=== PATIENT | female | born 1935 | race Caucasian/White ===

== ENCOUNTER 2016-08-10 20:50 | Emergency (ER) | payer MEDICARE, OTHER ==
[~2016-08-10] VITALS: Ht 175.3 cm; Wt 76.4 kg
[~2016-08-10 20:50] MED LIST: 00186-0370-20 IH; AMBIEN10 MG PO; CARDI-OMEGA1000 MG PO; CENTRUM1 TAB PO; ELITE MAGNESIUM1 TAB PO; ENTOCORT EC3 MG PO; EPA/GLA1 SGL PO; FENTANYL 25 MCG TD; GLUCOPHAGE500 MG/TAB PO; HALCION0.25 MG PO; LEVAQUIN 750MG750 M1 PO; LISINOPRIL10 MG PO; LUNESTA3 MG; MEVACOR40 MG PO; MOTRIN 600600 MG/TAB PO; NAPROSYN500 MG PO; NORCO 325 MG-51 TAB; OMNICEF 300MG300 MG PO; OSCAL 500MG/VI500 MG PO; PERCOCET 325 MG1 TA2 PO; PREDNISONE20 MG PO; PRINZIDE 12.5 M1 TA1 PO; REMERON30 MG PO; ROXICODONE 55 MG/TAB PO; RT SPIRIVA18 MCG IH; SERTRALINE50 MG PO; SYMBICORT1 AE1 IH; THEO-DUR 2200 MG/TAB PO; TRICOR200 MG PO; ULTRAM 50MG TAB50 MG PO; VITAMIN B12 PO; VITAMIN D PO; ZOCOR 20MG20 MG PO; ZOLOFT50 MG PO
[2016-08-10 20:56] VITALS: BP 146/67; PULSE 111; TEMP 97.7
[2016-08-10 21:37] LABS: BASO % 0.2 % (0.0-2.0); EOS % 0.3 % (0-4.0); GRAN # 10.5 (1.4-6.5); GRAN % 83.5 % (42.2-75.2); HEMATOCRIT 43.9 % (37.0-47.0); LYMPH # 1.4 (1.2-3.4); LYMPH % 11.1 % (20.0-51.0); MEAN CELL VOLUME 93 fl (80.0-100.0); MEAN CORPUSCULAR HEMOGLOBIN 30 pg (27.0-31.0); MEAN CORPUSCULAR HGB CONC 32 g/dl (33.0-37.0); MEAN PLATELET VOLUME 8.5 fl (7.4-10.4); MONO # 0.5 (0.1-0.6); MONO % 4.1 % (1.7-9.3); PLATELET COUNT 191 K/mm3 (130-400); RED BLOOD COUNT 4.73 M/mm3 (4.10-5.30); REDCELL DISTRIBUTION WIDTH-CV 13.6 % (11.5-14.5); WHITE BLOOD COUNT 12.6 K/mm3 (4.8-10.8)
[2016-08-10] MEDS ORDERED: AMITRIPTYLINE H25 M1 PO (21:44)
[2016-08-10] MEDS ORDERED: MILLIPRED DP5 MG PO (21:48)
[2016-08-10 21:56] LABS: ADJUSTED CALCIUM 8.9 mg/dL (8.4-10.2); ALANINE AMINOTRANSFERASE 24 U/L (9-52); ALBUMIN 3.6 gm/dL (3.5-5.0); ALKALINE PHOSPHATASE 71 U/L (50-136); ANION GAP 10 mmol/L (7-16); BILIRUBIN,TOTAL 0.8 mg/dL (0.0-1.0); BLOOD UREA NITROGEN 34 mg/dL (7-17); C-REACTIVE PROTEIN 1.9 mg/dL (0.0-0.9); CALCIUM 8.6 mg/dL (8.4-10.2); CARBON DIOXIDE 40 mmol/L (22-30); CREATININE, serum 1.11 mg/dL (0.52-1.25); GLUCOSE 206 mg/dL (74-106); LIPASE 151 U/L (23-300); POTASSIUM 4.8 mmol/L (3.4-5.0); SODIUM 138 mmol/L (137-145); TOTAL PROTEIN 6.8 gm/dL (6.4-8.2)
[2016-08-10 22:01] LABS: CHLORIDE 88 mmol/L (98-107)
[2016-08-10 22:08] LABS: ERYTHROCYTE SEDIMENTATION RATE 28 mm/hr (0-30); TROPONIN-I < 0.012 ng/mL (0.000-0.034)
[2016-08-10] MEDS ORDERED: ULTRAM 50MG TAB50 MG PO (22:36)
[2016-08-10] MEDS ORDERED: ROXICODONE 55 MG/TAB PO (22:36)
[2016-09-01] MEDS ORDERED: IPRATROPIUM BROM3 M1 IH (08:54)
== END 2016-08-10 23:25 | disposition home or self-care (01) ==
LOC: COL.ER 20:50
PROVIDERS: Emergency Medicine
DX: Z02.89 Encounter for other administrative examinations (principal)
CPT/HCPCS: J1170; J2175; Q9967

== ENCOUNTER 2016-08-12 01:06 | Inpatient (IN) | payer MEDICARE, MEDICAID ==
[~2016-08-12] VITALS: Ht 167.6 cm; Wt 83.1 kg
[~2016-08-12 01:06] MED LIST changes: +AMITRIPTYLINE H25 M1 PO; +MILLIPRED DP5 MG PO
[2016-08-12 01:24] LABS: BASO # 0.1 (0.0-0.2); BASO % 0.5 % (0.0-2.0); EOS # 0.3 (0.0-0.7); EOS % 2.4 % (0-4.0); GRAN # 8.7 (1.4-6.5); GRAN % 65.5 % (42.2-75.2); HEMATOCRIT 44.2 % (37.0-47.0); LYMPH # 3.3 (1.2-3.4); MEAN CELL VOLUME 95 fl (80.0-100.0); MEAN CORPUSCULAR HEMOGLOBIN 30 pg (27.0-31.0); MEAN CORPUSCULAR HGB CONC 32 g/dl (33.0-37.0); MEAN PLATELET VOLUME 8.5 fl (7.4-10.4); MONO # 0.8 (0.1-0.6); MONO % 5.9 % (1.7-9.3); PLATELET COUNT 168 K/mm3 (130-400); RED BLOOD COUNT 4.67 M/mm3 (4.10-5.30); WHITE BLOOD COUNT 13.3 K/mm3 (4.8-10.8)
[2016-08-12 01:39] LABS: ADJUSTED CALCIUM 8.9 mg/dL (8.4-10.2); ALBUMIN 3.9 gm/dL (3.5-5.0); BILIRUBIN,TOTAL 0.9 mg/dL (0.0-1.0); CALCIUM 8.8 mg/dL (8.4-10.2); CREATININE, serum 1.64 mg/dL (0.52-1.25); POTASSIUM 4.6 mmol/L (3.4-5.0); TOTAL PROTEIN 7.2 gm/dL (6.4-8.2)
[2016-08-12] MEDS ORDERED: REMERON30 MG PO (02:20)
[2016-08-12 02:54] LABS: TROPONIN-I 0.038 ng/mL (0.000-0.034)
[2016-08-12 03:38] VITALS: BP 104/50; PULSE 78; TEMP 98.2
[2016-08-12 07:41] LABS: HEMATOCRIT 40.5 % (37.0-47.0); HEMOGLOBIN 12.5 g/dl (12.5-16.0); MEAN CELL VOLUME 98 fl (80.0-100.0); MEAN CORPUSCULAR HEMOGLOBIN 30 pg (27.0-31.0); MEAN CORPUSCULAR HGB CONC 31 g/dl (33.0-37.0); MEAN PLATELET VOLUME 8.6 fl (7.4-10.4); PLATELET COUNT 161 K/mm3 (130-400); RED BLOOD COUNT 4.13 M/mm3 (4.10-5.30); REDCELL DISTRIBUTION WIDTH-CV 13.9 % (11.5-14.5)
[2016-08-12 08:00] LABS: ADD PATHOLOGY DIFF REVIEW NO; CALCIUM 7.8 mg/dL (8.4-10.2); CREATININE, serum 1.31 mg/dL (0.52-1.25); POTASSIUM 4.5 mmol/L (3.4-5.0)
[2016-08-12 08:10] VITALS: BP 123/55; PULSE 111; TEMP 98.7
[2016-08-12 08:49] LABS: BAND 14 % (0-10); NEUTROPHILS 80 % (42.0-75.2); TOTAL CELLS COUNTED 100
[2016-08-12 08:50] LABS: PLATELET ESTIMATE NORMAL (NORMAL)
[2016-08-12 10:39] LABS: PH 6 (5-8); SQUAMOUS EPITHELIAL 0-2 /hpf; URINE APPEARANCE Clear; URINE BACTERIA None Seen /hpf; URINE BILIRUBIN Negative (NEGATIVE); URINE BLOOD Negative (NEGATIVE); URINE COLOR Yellow; URINE GLUCOSE Negative (NEGATIVE); URINE KETONE Negative (NEGATIVE); URINE RBC 0-2 /hpf; URINE UROBILINOGEN Negative (NEGATIVE); URINE WBC 0-2 /hpf
[2016-08-12 11:45] VITALS: BP 94/53; PULSE 113; TEMP 98.3
[2016-09-01] MEDS ORDERED: IPRATROPIUM BROM3 M1 IH (08:54)
== END 2016-08-12 16:04 | disposition left against medical advice (07) | DRG 560 ==
LOC: COL.ER 01:06 → MEDICAL 02:27
PROVIDERS: Family Medicine; Nurse Practitioner Family
DX: M80.88XD Other osteoporosis with current pathological fracture, vertebra(e), subsequent encounter for fracture with routine healing (principal); J44.1 Chronic obstructive pulmonary disease with (acute) exacerbation; N17.9 Acute kidney failure, unspecified; E87.1 Hypo-osmolality and hyponatremia; E86.0 Dehydration; I10 Essential (primary) hypertension; F17.210 Nicotine dependence, cigarettes, uncomplicated; E87.8 Other disorders of electrolyte and fluid balance, not elsewhere classified
CPT/HCPCS: 99222-AI; 99231-AI; 99232-AI; J1170; J1644; J1956; J2175; J2920; J2930; J7030; Q9967

== ENCOUNTER 2016-08-14 16:56 | Inpatient (IN) | payer OTHER, MEDICAID ==
[2016-08-14] VITALS (191 sets, daily range): BP systolic 134; BP diastolic 85; PULSE 97; TEMP 97.4; O2SAT 86–100
[~2016-08-14] VITALS: Ht 175.3 cm; Wt 80.1 kg
[2016-08-14 17:31] LABS: BASO % 0.2 % (0.0-2.0); EOS # 0.3 (0.0-0.7); EOS % 2.2 % (0-4.0); GRAN # 8.5 (1.4-6.5); GRAN % 70.1 % (42.2-75.2); HEMATOCRIT 39.4 % (37.0-47.0); LYMPH # 2.4 (1.2-3.4); MEAN CELL VOLUME 98 fl (80.0-100.0); MEAN CORPUSCULAR HEMOGLOBIN 30 pg (27.0-31.0); MEAN CORPUSCULAR HGB CONC 31 g/dl (33.0-37.0); MEAN PLATELET VOLUME 8.6 fl (7.4-10.4); MONO # 0.8 (0.1-0.6); MONO % 6.8 % (1.7-9.3); PLATELET COUNT 184 K/mm3 (130-400); RED BLOOD COUNT 4.02 M/mm3 (4.10-5.30); WHITE BLOOD COUNT 12.2 K/mm3 (4.8-10.8)
[2016-08-14 17:40] LABS: ADJUSTED CALCIUM 9.1 mg/dL (8.4-10.2); ALANINE AMINOTRANSFERASE 33 U/L (9-52); ALBUMIN 3.3 gm/dL (3.5-5.0); ALKALINE PHOSPHATASE 64 U/L (50-136); ANION GAP 6 mmol/L (7-16); BILIRUBIN,TOTAL 0.5 mg/dL (0.0-1.0); BLOOD UREA NITROGEN 30 mg/dL (7-17); CALCIUM 8.5 mg/dL (8.4-10.2); CARBON DIOXIDE 35 mmol/L (22-30); CHLORIDE 92 mmol/L (98-107); CREATININE, serum 1.21 mg/dL (0.52-1.25); GLUCOSE 111 mg/dL (74-106); LIPASE 67 U/L (23-300); POTASSIUM 4.7 mmol/L (3.4-5.0); SODIUM 133 mmol/L (137-145); TOTAL PROTEIN 6.3 gm/dL (6.4-8.2)
[2016-08-14 17:42] LABS: ACETAMINOPHEN < 10 ug/mL (10-30)
[2016-08-14 17:52] LABS: B-TYPE NATRIURETIC PEPTIDE 8650 pg/mL (0-450)
[2016-08-14 17:54] LABS: TROPONIN-I 0.071 ng/mL (0.000-0.034)
[2016-08-14 18:00] LABS: ARTERIAL BLD GAS O2 SATURATION 93.7 % (92-100); ARTERIAL BLD GAS TCO2 CT 37.7; ARTERIAL BLOOD GAS BASE EXCESS 5.8 (-2-2); ARTERIAL BLOOD GAS HCO3 35.3 meq/L (22-26); ARTERIAL BLOOD GAS PHT 7.27 C (7.35-7.45); ARTERIAL BLOOD GAS PO2 71.5 mmHg (80-100); ARTERIAL BLOOD GAS PO2T 71.5 (80-100); ARTERIAL BLOOD GAS pH 7.27 (7.35-7.45); OXYHEMOGLOBIN 83.2 %
[2016-08-14 18:02] LABS: ATS? YES
[2016-08-14 18:08] LABS: INR 0.9 (0.8-3.0); PROTHROMBIN TIME 10.4 SECONDS (9.7-12.8)
[2016-08-14 18:11] LABS: PARTIAL THROMBOPLASTIN TIME 28.7 SECONDS (26.0-37.0)
[2016-08-14 21:45] LABS: ARTERIAL BLD GAS O2 SATURATION 97.4 % (92-100); ARTERIAL BLD GAS TCO2 CT 42.6; ARTERIAL BLOOD GAS BASE EXCESS 7.8 (-2-2); ARTERIAL BLOOD GAS HCO3 39.5 meq/L (22-26); ARTERIAL BLOOD GAS PHT 7.21 C (7.35-7.45); ARTERIAL BLOOD GAS PO2 108.4 mmHg (80-100); ARTERIAL BLOOD GAS PO2T 108.4 (80-100); ARTERIAL BLOOD GAS pH 7.21 (7.35-7.45); OXYHEMOGLOBIN 88.8 %
[2016-08-14 21:48] LABS: ALLEN TEST YES; ALLENS TEST RESULT PASS; ATS? YES
[2016-08-15] VITALS (852 sets, daily range): BP systolic 54–140; BP diastolic 32–83; PULSE 97–118; TEMP 97.4–98.4; O2SAT 67–100
[2016-08-15 05:40] LABS: ARTERIAL BLD GAS O2 SATURATION 94.4 % (92-100); ARTERIAL BLD GAS TCO2 CT 39.8; ARTERIAL BLOOD GAS BASE EXCESS 5.1 (-2-2); ARTERIAL BLOOD GAS HCO3 36.8 meq/L (22-26); ARTERIAL BLOOD GAS PO2 79.6 mmHg (80-100); ARTERIAL BLOOD GAS PO2T 79.6 (80-100); OXYHEMOGLOBIN 88.7 %
[2016-08-15 05:43] LABS: ALLEN TEST YES; ALLENS TEST RESULT PASS; ATS? YES
[2016-08-15 06:18] LABS: CALCIUM 8.8 mg/dL (8.4-10.2); CREATININE, serum 1.22 mg/dL (0.52-1.25); POTASSIUM 5.3 mmol/L (3.4-5.0)
[2016-08-15 06:46] LABS: HEMATOCRIT 43.7 % (37.0-47.0); HEMOGLOBIN 13.1 g/dl (12.5-16.0); MEAN CELL VOLUME 99 fl (80.0-100.0); MEAN CORPUSCULAR HEMOGLOBIN 30 pg (27.0-31.0); MEAN CORPUSCULAR HGB CONC 30 g/dl (33.0-37.0); MEAN PLATELET VOLUME 8.7 fl (7.4-10.4); PLATELET COUNT 193 K/mm3 (130-400); RED BLOOD COUNT 4.42 M/mm3 (4.10-5.30); REDCELL DISTRIBUTION WIDTH-CV 14.2 % (11.5-14.5); WHITE BLOOD COUNT 8.8 K/mm3 (4.8-10.8)
[2016-08-15 06:47] LABS: ADD PATHOLOGY DIFF REVIEW NO
[2016-08-15 07:01] LABS: THYROID STIMULATING HORMONE 0.846 uIU/mL (0.465-4.680)
[2016-08-15 07:31] LABS: TROPONIN-I 0.056 ng/mL (0.000-0.034)
[2016-08-15 07:44] LABS: NEUTROPHILS 95 % (42.0-75.2); TOTAL CELLS COUNTED 100
[2016-08-15 07:45] LABS: POLYCHROMASIA 1+
[2016-08-15 07:46] LABS: ANISOCYTOSIS 1+; STOMATOCYTE 1+
[2016-08-15 08:19] LABS: ARTERIAL BLD GAS O2 SATURATION 93.6 % (92-100); ARTERIAL BLD GAS TCO2 CT 43.2; ARTERIAL BLOOD GAS BASE EXCESS 8.2 (-2-2); ARTERIAL BLOOD GAS HCO3 40.1 meq/L (22-26); ARTERIAL BLOOD GAS PHT 7.21 C (7.35-7.45); ARTERIAL BLOOD GAS PO2 70.3 mmHg (80-100); ARTERIAL BLOOD GAS PO2T 70.3 (80-100); ARTERIAL BLOOD GAS pH 7.21 (7.35-7.45); OXYHEMOGLOBIN 88.7 %
[2016-08-15 08:21] LABS: ALLEN TEST YES; ALLENS TEST RESULT PASS; ATS? YES
[2016-08-15 14:16] LABS: ARTERIAL BLD GAS O2 SATURATION 97.5 % (92-100); ARTERIAL BLD GAS TCO2 CT 34.2; ARTERIAL BLOOD GAS HCO3 32.3 meq/L (22-26); ARTERIAL BLOOD GAS PHT 7.35 C (7.35-7.45); ARTERIAL BLOOD GAS PO2 106.1 mmHg (80-100); ARTERIAL BLOOD GAS PO2T 106.1 (80-100); ARTERIAL BLOOD GAS pH 7.35 (7.35-7.45)
[2016-08-15 14:17] LABS: ATS? YES
[2016-08-15 14:18] LABS: ALLEN TEST YES; ALLENS TEST RESULT PASS
[2016-08-16] VITALS (848 sets, daily range): BP systolic 92–153; BP diastolic 52–84; PULSE 103–115; TEMP 97.2–99; O2SAT 71–100
[2016-08-16 04:57] LABS: ARTERIAL BLD GAS O2 SATURATION 93.1 % (92-100); ARTERIAL BLD GAS TCO2 CT 35.2; ARTERIAL BLOOD GAS HCO3 33.7 meq/L (22-26); ARTERIAL BLOOD GAS PHT 7.43 C (7.35-7.45); ARTERIAL BLOOD GAS PO2 69.9 mmHg (80-100); ARTERIAL BLOOD GAS PO2T 69.9 (80-100); ARTERIAL BLOOD GAS pH 7.43 (7.35-7.45); OXYHEMOGLOBIN 92.1 %
[2016-08-16 04:59] LABS: ALLEN TEST YES; ALLENS TEST RESULT PASS; ATS? YES
[2016-08-16 06:05] LABS: MEAN CELL VOLUME 95 fl (80.0-100.0); MEAN CORPUSCULAR HGB CONC 32 g/dl (33.0-37.0); MEAN PLATELET VOLUME 9.2 fl (7.4-10.4); PLATELET COUNT 219 K/mm3 (130-400); RED BLOOD COUNT 3.79 M/mm3 (4.10-5.30); REDCELL DISTRIBUTION WIDTH-CV 13.9 % (11.5-14.5); WHITE BLOOD COUNT 9.6 K/mm3 (4.8-10.8)
[2016-08-16 06:09] LABS: HEMATOCRIT 35.9 % (37.0-47.0); HEMOGLOBIN 11.3 g/dl (12.5-16.0); MEAN CORPUSCULAR HEMOGLOBIN 30 pg (27.0-31.0)
[2016-08-16 06:11] LABS: ADD PATHOLOGY DIFF REVIEW NO
[2016-08-16 06:18] LABS: ADJUSTED CALCIUM 9.2 mg/dL (8.4-10.2); ALBUMIN 3.1 gm/dL (3.5-5.0); BILIRUBIN,TOTAL 0.6 mg/dL (0.0-1.0); CALCIUM 8.5 mg/dL (8.4-10.2); CREATININE, serum 1.04 mg/dL (0.52-1.25); MAGNESIUM 1.6 mg/dL (1.6-2.3); PHOSPHOROUS 3.9 mg/dL (2.5-4.5); TOTAL PROTEIN 6.1 gm/dL (6.4-8.2)
[2016-08-16 06:36] LABS: BAND 11 % (0-10); NEUTROPHILS 79 % (42.0-75.2); TOTAL CELLS COUNTED 100
[2016-08-17] VITALS (1373 sets, daily range): BP systolic 106–147; BP diastolic 54–79; PULSE 89–108; TEMP 97.8–98.6; O2SAT 88–100
[2016-08-17 04:23] LABS: ARTERIAL BLD GAS O2 SATURATION 89.1 % (92-100); ARTERIAL BLOOD GAS BASE EXCESS 7.7 (-2-2); ARTERIAL BLOOD GAS HCO3 33.4 meq/L (22-26); ARTERIAL BLOOD GAS PHT 7.43 C (7.35-7.45); ARTERIAL BLOOD GAS PO2 55.7 mmHg (80-100); ARTERIAL BLOOD GAS PO2T 55.7 (80-100); ARTERIAL BLOOD GAS pH 7.43 (7.35-7.45); OXYHEMOGLOBIN 88.4 %
[2016-08-17 04:24] LABS: ALLEN TEST YES; ALLENS TEST RESULT PASS; ATS? YES
[2016-08-17 05:23] LABS: BASO % 0.1 % (0.0-2.0); GRAN # 8.9 (1.4-6.5); LYMPH # 0.4 (1.2-3.4); LYMPH % 4.2 % (20.0-51.0); MEAN CELL VOLUME 95 fl (80.0-100.0); MEAN CORPUSCULAR HGB CONC 32 g/dl (33.0-37.0); MEAN PLATELET VOLUME 8.5 fl (7.4-10.4); MONO # 0.5 (0.1-0.6); MONO % 4.9 % (1.7-9.3); PLATELET COUNT 216 K/mm3 (130-400); RED BLOOD COUNT 3.52 M/mm3 (4.10-5.30); REDCELL DISTRIBUTION WIDTH-CV 14.2 % (11.5-14.5); WHITE BLOOD COUNT 9.9 K/mm3 (4.8-10.8)
[2016-08-17 05:24] LABS: HEMATOCRIT 33.3 % (37.0-47.0); HEMOGLOBIN 10.5 g/dl (12.5-16.0); MEAN CORPUSCULAR HEMOGLOBIN 30 pg (27.0-31.0)
[2016-08-17 05:43] LABS: ADJUSTED CALCIUM 9.1 mg/dL (8.4-10.2); ALBUMIN 2.7 gm/dL (3.5-5.0); BILIRUBIN,TOTAL 0.5 mg/dL (0.0-1.0); CALCIUM 8.1 mg/dL (8.4-10.2); CREATININE, serum 0.84 mg/dL (0.52-1.25); MAGNESIUM 1.7 mg/dL (1.6-2.3); PHOSPHOROUS 3.2 mg/dL (2.5-4.5); POTASSIUM 3.9 mmol/L (3.4-5.0); TOTAL PROTEIN 5.3 gm/dL (6.4-8.2)
[2016-08-17 11:26] LABS: pH GASTRIC CONTENTS 3
[2016-08-18] VITALS (791 sets, daily range): BP systolic 116–138; BP diastolic 64–84; PULSE 88–108; TEMP 97–98.1; O2SAT 62–100
[2016-08-18 04:40] LABS: ARTERIAL BLD GAS O2 SATURATION 89.3 % (92-100); ARTERIAL BLD GAS TCO2 CT 30.5; ARTERIAL BLOOD GAS BASE EXCESS 4.7 (-2-2); ARTERIAL BLOOD GAS HCO3 29.2 meq/L (22-26); ARTERIAL BLOOD GAS PHT 7.45 C (7.35-7.45); ARTERIAL BLOOD GAS PO2 54.5 mmHg (80-100); ARTERIAL BLOOD GAS PO2T 54.5 (80-100); ARTERIAL BLOOD GAS pH 7.45 (7.35-7.45); OXYHEMOGLOBIN 88.7 %
[2016-08-18 04:42] LABS: ALLEN TEST YES; ALLENS TEST RESULT PASS; ATS? YES
[2016-08-18 05:40] LABS: ADJUSTED CALCIUM 8.9 mg/dL (8.4-10.2); ALBUMIN 2.7 gm/dL (3.5-5.0); BILIRUBIN,TOTAL 0.4 mg/dL (0.0-1.0); CALCIUM 7.9 mg/dL (8.4-10.2); CREATININE, serum 0.92 mg/dL (0.52-1.25); POTASSIUM 4.1 mmol/L (3.4-5.0); TOTAL PROTEIN 5.2 gm/dL (6.4-8.2)
[2016-08-18 05:44] LABS: BASO % 0.1 % (0.0-2.0); GRAN # 7.5 (1.4-6.5); GRAN % 88.3 % (42.2-75.2); LYMPH # 0.4 (1.2-3.4); LYMPH % 4.5 % (20.0-51.0); MEAN CELL VOLUME 96 fl (80.0-100.0); MEAN CORPUSCULAR HGB CONC 32 g/dl (33.0-37.0); MEAN PLATELET VOLUME 8.8 fl (7.4-10.4); MONO # 0.5 (0.1-0.6); PLATELET COUNT 215 K/mm3 (130-400); RED BLOOD COUNT 3.38 M/mm3 (4.10-5.30); REDCELL DISTRIBUTION WIDTH-CV 14.6 % (11.5-14.5); WHITE BLOOD COUNT 8.5 K/mm3 (4.8-10.8)
[2016-08-18 06:10] LABS: HEMATOCRIT 32.3 % (37.0-47.0); HEMOGLOBIN 10.2 g/dl (12.5-16.0); MEAN CORPUSCULAR HEMOGLOBIN 30 pg (27.0-31.0)
[2016-08-18 06:18] LABS: MAGNESIUM 1.8 mg/dL (1.6-2.3); PHOSPHOROUS 3.5 mg/dL (2.5-4.5)
[2016-08-19] VITALS (1118 sets, daily range): BP systolic 99–144; BP diastolic 47–86; PULSE 68–133; TEMP 97.2–98.5; O2SAT 37–100
[2016-08-19 04:49] LABS: ARTERIAL BLD GAS O2 SATURATION 95.4 % (92-100); ARTERIAL BLD GAS TCO2 CT 29.1; ARTERIAL BLOOD GAS BASE EXCESS 2.2 (-2-2); ARTERIAL BLOOD GAS HCO3 27.7 meq/L (22-26); ARTERIAL BLOOD GAS PHT 7.39 C (7.35-7.45); ARTERIAL BLOOD GAS PO2 85.6 mmHg (80-100); ARTERIAL BLOOD GAS PO2T 85.6 (80-100); ARTERIAL BLOOD GAS pH 7.39 (7.35-7.45); OXYHEMOGLOBIN 94.8 %
[2016-08-19 04:50] LABS: ATS? YES
[2016-08-19 04:51] LABS: ALLEN TEST YES; ALLENS TEST RESULT PASS
[2016-08-19 05:28] LABS: MEAN CELL VOLUME 96 fl (80.0-100.0); MEAN CORPUSCULAR HGB CONC 31 g/dl (33.0-37.0); MEAN PLATELET VOLUME 8.8 fl (7.4-10.4); PLATELET COUNT 210 K/mm3 (130-400); RED BLOOD COUNT 3.24 M/mm3 (4.10-5.30); REDCELL DISTRIBUTION WIDTH-CV 14.7 % (11.5-14.5); WHITE BLOOD COUNT 9.7 K/mm3 (4.8-10.8)
[2016-08-19 05:30] LABS: ADD PATHOLOGY DIFF REVIEW NO; HEMATOCRIT 31.2 % (37.0-47.0); HEMOGLOBIN 9.8 g/dl (12.5-16.0); MEAN CORPUSCULAR HEMOGLOBIN 30 pg (27.0-31.0)
[2016-08-19 05:36] LABS: ADJUSTED CALCIUM 8.8 mg/dL (8.4-10.2); ALBUMIN 2.5 gm/dL (3.5-5.0); BILIRUBIN,TOTAL 0.4 mg/dL (0.0-1.0); CALCIUM 7.6 mg/dL (8.4-10.2); CREATININE, serum 0.85 mg/dL (0.52-1.25); MAGNESIUM 1.7 mg/dL (1.6-2.3); POTASSIUM 4.2 mmol/L (3.4-5.0); TOTAL PROTEIN 5.1 gm/dL (6.4-8.2)
[2016-08-19 06:11] LABS: BAND 46 % (0-10); NEUTROPHILS 48 % (42.0-75.2); TOTAL CELLS COUNTED 100
[2016-08-19 16:02] LABS: ARTERIAL BLD GAS O2 SATURATION 95.5 % (92-100); ARTERIAL BLD GAS TCO2 CT 31.8; ARTERIAL BLOOD GAS BASE EXCESS 5.1 (-2-2); ARTERIAL BLOOD GAS HCO3 30.3 meq/L (22-26); ARTERIAL BLOOD GAS PHT 7.42 C (7.35-7.45); ARTERIAL BLOOD GAS pH 7.42 (7.35-7.45); OXYHEMOGLOBIN 94.9 %
[2016-08-19 16:03] LABS: ALLEN TEST YES; ALLENS TEST RESULT PASS; ATS? YES
[2016-08-20] VITALS (754 sets, daily range): BP systolic 112–128; BP diastolic 54–72; PULSE 91–108; TEMP 97.7–98.9; O2SAT 48–100
[2016-08-20 05:43] LABS: MEAN CELL VOLUME 96 fl (80.0-100.0); MEAN CORPUSCULAR HGB CONC 31 g/dl (33.0-37.0); MEAN PLATELET VOLUME 8.7 fl (7.4-10.4); PLATELET COUNT 188 K/mm3 (130-400); RED BLOOD COUNT 3.12 M/mm3 (4.10-5.30); REDCELL DISTRIBUTION WIDTH-CV 14.6 % (11.5-14.5); WHITE BLOOD COUNT 9.5 K/mm3 (4.8-10.8)
[2016-08-20 05:46] LABS: ADD PATHOLOGY DIFF REVIEW NO; HEMATOCRIT 29.9 % (37.0-47.0); HEMOGLOBIN 9.3 g/dl (12.5-16.0); MEAN CORPUSCULAR HEMOGLOBIN 30 pg (27.0-31.0)
[2016-08-20 05:52] LABS: CALCIUM 7.9 mg/dL (8.4-10.2); CREATININE, serum 0.82 mg/dL (0.52-1.25)
[2016-08-20 06:19] LABS: BAND 35 % (0-10); NEUTROPHILS 59 % (42.0-75.2); TOTAL CELLS COUNTED 100
[2016-08-20 15:26] LABS: THEOPHYLLINE 14.9 ug/mL (10.0-20.0)
[2016-08-21 00:25] VITALS: BP 119/56; PULSE 93; TEMP 98.6
[2016-08-21 03:23] VITALS: BP 123/73; PULSE 94; TEMP 98.5
[2016-08-21 05:29] LABS: ARTERIAL BLD GAS TCO2 CT 35.8; ARTERIAL BLOOD GAS BASE EXCESS 7.5 (-2-2); ARTERIAL BLOOD GAS PO2 77.5 mmHg (80-100); ARTERIAL BLOOD GAS pH 7.39 (7.35-7.45)
[2016-08-21 05:30] LABS: ALLEN TEST YES; ALLENS TEST RESULT PASS; ATS? YES
[2016-08-21 09:34] VITALS: BP 102/47; PULSE 106; TEMP 97.8
[2016-08-21 13:10] VITALS: BP 98/60; PULSE 79; TEMP 97.8
[2016-08-21 17:31] VITALS: BP 105/39; PULSE 74; TEMP 97.7
[2016-08-21 22:45] VITALS: BP 124/66; PULSE 94; TEMP 98.6
[2016-08-22 03:31] VITALS: BP 134/57; PULSE 95; TEMP 98.3
[2016-08-22 06:12] LABS: BASO % 0.3 % (0.0-2.0); GRAN # 13.1 (1.4-6.5); GRAN % 88.3 % (42.2-75.2); LYMPH # 0.5 (1.2-3.4); LYMPH % 3.6 % (20.0-51.0); MEAN CELL VOLUME 97 fl (80.0-100.0); MEAN CORPUSCULAR HGB CONC 31 g/dl (33.0-37.0); MEAN PLATELET VOLUME 8.9 fl (7.4-10.4); MONO # 0.8 (0.1-0.6); MONO % 5.1 % (1.7-9.3); REDCELL DISTRIBUTION WIDTH-CV 14.5 % (11.5-14.5); WHITE BLOOD COUNT 14.8 K/mm3 (4.8-10.8)
[2016-08-22 06:43] LABS: ADJUSTED CALCIUM 9.2 mg/dL (8.4-10.2); BILIRUBIN,TOTAL 0.5 mg/dL (0.0-1.0); CALCIUM 8.4 mg/dL (8.4-10.2); CREATININE, serum 0.91 mg/dL (0.52-1.25); POTASSIUM 4.2 mmol/L (3.4-5.0); TOTAL PROTEIN 5.6 gm/dL (6.4-8.2)
[2016-08-22 06:52] LABS: HEMATOCRIT 33.8 % (37.0-47.0); HEMOGLOBIN 10.4 g/dl (12.5-16.0); MEAN CORPUSCULAR HEMOGLOBIN 30 pg (27.0-31.0); PLATELET COUNT 294 K/mm3 (130-400)
[2016-08-22 09:23] VITALS: BP 114/64; PULSE 104; TEMP 98
[2016-08-22 12:34] LABS: ADD PATHOLOGY DIFF REVIEW NO
[2016-08-22 12:37] LABS: BAND 23 % (0-10); EOSINOPHIL 1 % (0-4); METAMYELOCYTE 1 % (0-0); MYELOCYTE 1 % (0-0); NEUTROPHILS 68 % (42.0-75.2); PLATELET ESTIMATE NORMAL (NORMAL); TOTAL CELLS COUNTED 100
[2016-08-22 12:38] LABS: ANISOCYTOSIS 1+
[2016-08-22 13:32] VITALS: BP 114/64; PULSE 96; TEMP 98.1
[2016-08-22 17:23] VITALS: BP 104/63; PULSE 101; TEMP 97.8
[2016-08-22 20:07] VITALS: BP 130/66; PULSE 106; TEMP 98.5
[2016-08-22 22:43] VITALS: BP 130/57; PULSE 98; TEMP 98.4
[2016-08-23 03:15] VITALS: BP 130/64; PULSE 91; TEMP 98.3
[2016-08-23 07:55] VITALS: BP 148/77; PULSE 92; TEMP 97.6
[2016-08-23 11:58] VITALS: BP 135/74; PULSE 92; TEMP 97.9
[2016-08-23 16:27] VITALS: BP 100/47; PULSE 99; TEMP 98.5
[2016-08-23 20:03] VITALS: BP 126/65; PULSE 109; TEMP 98.4
[2016-08-24 01:34] VITALS: BP 99/50; PULSE 93; TEMP 97.8
[2016-08-24 05:29] VITALS: BP 120/51; PULSE 70; TEMP 97.2
[2016-08-24 07:51] VITALS: BP 133/68; PULSE 104; TEMP 97.7
[2016-08-24 12:18] VITALS: BP 114/62; PULSE 100; TEMP 98.2
[2016-08-24] MEDS ORDERED: IPRATROPIUM BROM3 M1 IH (13:39)
[2016-08-24] MEDS ORDERED: NICODERM C21 MG/PATC TD (13:41)
[2016-08-24] MEDS ORDERED: ASPIRIN E.C. 8181 MG PO (13:41)
[2016-08-24] MEDS ORDERED: PROTONIX 40MG T40 MG PO (13:43)
[2016-08-24] MEDS ORDERED: LASIX 40MG TABL40 MG PO (13:44)
[2016-08-24] MEDS ORDERED: INCRUSE EL62.5 MCG/A IH (13:45)
[2016-08-24] MEDS ORDERED: CARDIZEM CD 12120 MG PO (13:46)
[2016-08-24] MEDS ORDERED: PRINIVIL10 MG PO (13:47)
[2016-08-24] MEDS ORDERED: PREDNISONE10 MG PO (13:51)
[2016-08-24 14:51] VITALS: BP 114/62; PULSE 100; TEMP 98.2
[2016-09-01] MEDS ORDERED: IPRATROPIUM BROM3 M1 IH (08:54)
== END 2016-08-24 15:55 | DRG 163 ==
LOC: COL.ER 16:56 → ICU 18:56 → IMCU 18:56 → ICU 08-15 10:40 → MEDICAL 08-20 16:00
PROVIDERS: Emergency Medicine; Family Medicine; Internal Medicine; Internal Medicine Pulmonary Disease
PROC: 0BH18EZ Insertion of Endotracheal Airway into Trachea, Via Natural or Artificial Opening Endoscopic (ICD-10-PCS; principal; 2016-08-15)
PROC: 5A1945Z Respiratory Ventilation, 24-96 Consecutive Hours (ICD-10-PCS; 2016-08-15)
PROC: 0B968ZZ Drainage of Right Lower Lobe Bronchus, Via Natural or Artificial Opening Endoscopic (ICD-10-PCS; 2016-08-16)
PROC: 0B9B8ZZ Drainage of Left Lower Lobe Bronchus, Via Natural or Artificial Opening Endoscopic (ICD-10-PCS; 2016-08-16)
DX: J96.22 Acute and chronic respiratory failure with hypercapnia (principal); I21.4 Non-ST elevation (NSTEMI) myocardial infarction; J44.1 Chronic obstructive pulmonary disease with (acute) exacerbation; E46 Unspecified protein-calorie malnutrition; K92.0 Hematemesis; J98.11 Atelectasis; I10 Essential (primary) hypertension; F17.210 Nicotine dependence, cigarettes, uncomplicated; M48.54XD Collapsed vertebra, not elsewhere classified, thoracic region, subsequent encounter for fracture with routine healing; E87.5 Hyperkalemia; D64.9 Anemia, unspecified; K52.831 Collagenous colitis
CPT/HCPCS: 99223-AI; 99232-AI; 99233-AI; 99239; A4315; C1751; C9113; J0280; J0330; J0456; J1160; J1650; J1940; J2060; J2250; J2704; J2920; J2930; J3010; J3475; J3480; J7030; J7040; J7050; J7060; J7512; Q9967

== ENCOUNTER → 2016-09-01 | Outpatient (CLI) | payer MEDICARE, MEDICAID ==
[~2016-09-01] VITALS: Ht 175.3 cm; Wt 77.3 kg
[~2016-09-01] MED LIST changes: +AMBIEN 5MG TABLE5 MG PO; +ASPIRIN E.C. 8181 MG PO; +CARDIZEM CD 12120 MG PO; +INCRUSE EL62.5 MCG/A IH; +IPRATROPIUM BROM3 M1 IH; +LASIX 40MG TABL40 MG PO; +LEVAQUIN 5500 MG/TA1 PO; +NICODERM C21 MG/PATC TD; +PREDNISONE10 MG PO; +PRINIVIL10 MG PO; +PROTONIX 40MG T40 MG PO; +ZOFRAN 4MG T4 MG/TAB PO
[2016-09-01 08:39] VITALS: BP 105/55; PULSE 94
[2016-09-01 10:10] VITALS: BP 106/56; PULSE 97
[2016-09-01 10:11] VITALS: BP 105/57; PULSE 96
[2016-09-01 10:12] VITALS: BP 114/56; PULSE 95
== END ==
LOC: COL.CARD 08:25
DX: R94.39 Abnormal result of other cardiovascular function study (principal); R07.89 Other chest pain
CPT/HCPCS: A9502; J2785

== ENCOUNTER 2016-09-10 12:10 | Emergency (ER) | payer MEDICARE, MEDICAID ==
[~2016-09-10] VITALS: Ht 175.3 cm; Wt 75.9 kg
[~2016-09-10 12:10] MED LIST changes: -AMBIEN 5MG TABLE5 MG PO; -LEVAQUIN 5500 MG/TA1 PO; -ZOFRAN 4MG T4 MG/TAB PO
[2016-09-10 12:12] VITALS: TEMP 97.6
[2016-09-10 13:09] LABS: MEAN CELL VOLUME 96 fl (80.0-100.0); MEAN CORPUSCULAR HGB CONC 32 g/dl (33.0-37.0); MEAN PLATELET VOLUME 8.4 fl (7.4-10.4); PLATELET COUNT 226 K/mm3 (130-400); RED BLOOD COUNT 3.14 M/mm3 (4.10-5.30); REDCELL DISTRIBUTION WIDTH-CV 15.3 % (11.5-14.5); WHITE BLOOD COUNT 5.4 K/mm3 (4.8-10.8)
[2016-09-10 13:11] LABS: ADD PATHOLOGY DIFF REVIEW NO; HEMATOCRIT 30.2 % (37.0-47.0); HEMOGLOBIN 9.6 g/dl (12.5-16.0); MEAN CORPUSCULAR HEMOGLOBIN 31 pg (27.0-31.0)
[2016-09-10 13:23] LABS: ADJUSTED CALCIUM 9.5 mg/dL (8.4-10.2); ALBUMIN 3.3 gm/dL (3.5-5.0); BILIRUBIN,TOTAL 0.7 mg/dL (0.0-1.0); CALCIUM 8.9 mg/dL (8.4-10.2); CREATININE, serum 1.39 mg/dL (0.52-1.25); POTASSIUM 3.8 mmol/L (3.4-5.0); TOTAL PROTEIN 6.5 gm/dL (6.4-8.2)
[2016-09-10 13:48] LABS: ANISOCYTOSIS 1+; BAND 4 % (0-10); EOSINOPHIL 1 % (0-4); NEUTROPHILS 70 % (42.0-75.2); TOTAL CELLS COUNTED 100
[2016-09-10 13:50] LABS: PLATELET ESTIMATE NORMAL (NORMAL)
[2016-09-10 13:55] LABS: PH 5 (5-8); SQUAMOUS EPITHELIAL None Seen /hpf; URINE APPEARANCE Hazy; URINE BACTERIA None Seen /hpf; URINE BILIRUBIN Negative (NEGATIVE); URINE BLOOD 1+ (NEGATIVE); URINE COLOR Yellow; URINE GLUCOSE Negative (NEGATIVE); URINE KETONE Negative (NEGATIVE); URINE UROBILINOGEN Negative (NEGATIVE); URINE WBC >50 /hpf
[2016-09-10] MEDS ORDERED: LEVAQUIN 5500 MG/TA1 PO (14:21)
[2016-09-10] MEDS ORDERED: ZOFRAN 4MG T4 MG/TAB PO (14:22)
[2016-09-10 16:00] VITALS: BP 138/70; PULSE 95
== END 2016-09-10 16:20 | disposition home or self-care (01) ==
LOC: COL.ER 12:10
PROVIDERS: Emergency Medicine
DX: I95.9 Hypotension, unspecified (principal); N39.0 Urinary tract infection, site not specified; J06.9 Acute upper respiratory infection, unspecified; D64.9 Anemia, unspecified; J44.9 Chronic obstructive pulmonary disease, unspecified; I10 Essential (primary) hypertension
CPT/HCPCS: J0696; J7030

== ENCOUNTER 2016-10-06 14:39 | Observation (INO) | payer MEDICARE, MEDICAID ==
[~2016-10-06] VITALS: Ht 175.3 cm; Wt 80.0 kg
[~2016-10-06 14:39] MED LIST changes: +LEVAQUIN 5500 MG/TA1 PO; +ZOFRAN 4MG T4 MG/TAB PO
[2016-10-06 15:54] LABS: BASO # 0.1 (0.0-0.2); BASO % 0.8 % (0.0-2.0); EOS # 0.2 (0.0-0.7); EOS % 1.8 % (0-4.0); LYMPH # 1.5 (1.2-3.4); LYMPH % 17.2 % (20.0-51.0); MEAN CELL VOLUME 99 fl (80.0-100.0); MEAN CORPUSCULAR HGB CONC 31 g/dl (33.0-37.0); MEAN PLATELET VOLUME 8.4 fl (7.4-10.4); MONO # 0.9 (0.1-0.6); MONO % 10.5 % (1.7-9.3); PLATELET COUNT 261 K/mm3 (130-400); RED BLOOD COUNT 3.05 M/mm3 (4.10-5.30); REDCELL DISTRIBUTION WIDTH-CV 14.5 % (11.5-14.5); WHITE BLOOD COUNT 8.7 K/mm3 (4.8-10.8)
[2016-10-06 15:55] LABS: HEMATOCRIT 30.2 % (37.0-47.0); HEMOGLOBIN 9.4 g/dl (12.5-16.0); MEAN CORPUSCULAR HEMOGLOBIN 31 pg (27.0-31.0)
[2016-10-06 16:04] LABS: ADJUSTED CALCIUM 9.1 mg/dL (8.4-10.2); ALBUMIN 3.6 gm/dL (3.5-5.0); BILIRUBIN,TOTAL 0.7 mg/dL (0.0-1.0); CALCIUM 8.8 mg/dL (8.4-10.2); CREATININE, serum 1.08 mg/dL (0.52-1.25); POTASSIUM 5.3 mmol/L (3.4-5.0)
[2016-10-06 22:06] VITALS: BP 128/51; PULSE 100; TEMP 98
[2016-10-07] VITALS (7 sets, daily range): BP systolic 86–112; BP diastolic 39–52; PULSE 96–109; TEMP 97.4–98.5
[2016-10-07 06:59] LABS: CALCIUM 8.4 mg/dL (8.4-10.2); CREATININE, serum 1.04 mg/dL (0.52-1.25); POTASSIUM 4.7 mmol/L (3.4-5.0)
[2016-10-07] MEDS ORDERED: INCRUSE EL62.5 MCG/A IH (11:10)
[2016-10-08 02:46] VITALS: BP 108/50; PULSE 97; TEMP 98.2
[2016-10-08 07:47] VITALS: BP 129/57; PULSE 94; TEMP 98
[2016-10-08 12:34] VITALS: BP 141/77; PULSE 111
[2016-10-08 13:47] VITALS: BP 131/68; PULSE 98
[2016-10-08] MEDS ORDERED: ROXICODONE 55 MG/TAB PO (13:58)
[2016-10-08] MEDS ORDERED: AMBIEN 5MG TABLE5 MG PO (13:58)
[2016-10-08 16:00] VITALS: BP 113/88; PULSE 101; TEMP 97.3
[2016-10-08 21:38] VITALS: BP 123/76; PULSE 99; TEMP 97.6
[2016-10-09 00:14] VITALS: BP 101/54; PULSE 87; TEMP 97.6
[2016-10-09 03:36] VITALS: BP 95/46; PULSE 88; TEMP 98
[2016-10-09 08:11] VITALS: BP 114/60; PULSE 94; TEMP 98.5
[2016-10-09 11:01] VITALS: BP 98/46; PULSE 106
[2016-10-09 14:33] VITALS: BP 98/46; PULSE 106; TEMP 98.5
[2016-10-09] MEDS ORDERED: ROXICODONE 55 MG/TAB PO (22:15)
== END 2016-10-09 16:30 ==
LOC: COL.ER 14:39 → MEDICAL 18:31
PROVIDERS: Emergency Medicine; Family Medicine
DX: S22.070A Wedge compression fracture of T9-T10 vertebra, initial encounter for closed fracture (principal); J44.9 Chronic obstructive pulmonary disease, unspecified; I11.0 Hypertensive heart disease with heart failure; I50.9 Heart failure, unspecified; E11.9 Type 2 diabetes mellitus without complications; G47.33 Obstructive sleep apnea (adult) (pediatric); E78.5 Hyperlipidemia, unspecified; K21.9 Gastro-esophageal reflux disease without esophagitis; E87.5 Hyperkalemia; I87.2 Venous insufficiency (chronic) (peripheral); W19.XXXA Unspecified fall, initial encounter; Z87.891 Personal history of nicotine dependence; Z79.01 Long term (current) use of anticoagulants; Y92.009 Unspecified place in unspecified non-institutional (private) residence as the place of occurrence of the external cause
CPT/HCPCS: 99223-AI; 99233-AI; 99239; A9284; C1713; G0378; G8987-GO; G8988-GO; J1644; J1940; J2250; J2270; J2765; J3010

== ENCOUNTER 2016-10-09 21:07 | Emergency (ER) | payer MEDICARE, MEDICAID ==
[~2016-10-09] VITALS: Ht 175.3 cm; Wt 77.7 kg
[~2016-10-09 21:07] MED LIST changes: +AMBIEN 5MG TABLE5 MG PO
[2016-10-09 21:10] VITALS: TEMP 97.9
[2016-10-09] MEDS ORDERED: ROXICODONE 55 MG/TAB PO (22:15)
[2016-10-09 22:54] VITALS: BP 104/67; PULSE 97
== END 2016-10-09 22:54 | disposition home or self-care (01) ==
LOC: COL.ER 21:07
DX: G89.18 Other acute postprocedural pain (principal); M48.54XD Collapsed vertebra, not elsewhere classified, thoracic region, subsequent encounter for fracture with routine healing; M54.5 Low back pain
CPT/HCPCS: J1885

== ENCOUNTER 2018-07-23 04:47 | Inpatient (IN) | payer MEDICARE, MEDICAID ==
[~2018-07-23] VITALS: Ht 172.7 cm; Wt 73.8 kg
[~2018-07-23 04:47] MED LIST changes: +EPA FISH OIL1 SGL PO; +LASIX 20MG TABL20 MG PO; -THEO-DUR 2200 MG/TAB PO; +THEO-DUR 3300 MG/TAB PO
[2018-07-23] MEDS ORDERED: LEVOXYL0.025 MG PO (05:25)
[2018-07-23] MEDS ORDERED: LASIX 20MG TABL20 MG PO (05:26)
[2018-07-23] MEDS ORDERED: INTERMEZZO SL (05:26)
[2018-07-23] MEDS ORDERED: THEO-DUR 1100 MG/TAB PO (05:27)
[2018-07-23] MEDS ORDERED: ZEBETA 5MG5 MG PO (05:27)
[2018-07-23] MEDS ORDERED: GLUCOPHAGE500 MG/TAB PO (05:27)
[2018-07-23] MEDS ORDERED: ZOLOFT 25MG25 MG PO (05:27)
[2018-07-23] MEDS ORDERED: PREDNISONE1 MG PO (05:28)
[2018-07-23 05:32] LABS: BASO # 0.1 (0.0-0.2); BASO % 0.6 % (0.0-2.0); EOS # 0.2 (0.0-0.7); GRAN # 5.3 (1.4-6.5); GRAN % 65.2 % (42.2-75.2); HEMOGLOBIN 11.6 g/dl (12.5-16.0); LYMPH # 1.7 (1.2-3.4); LYMPH % 21.1 % (20.0-51.0); MEAN CELL VOLUME 95 fl (80.0-100.0); MEAN CORPUSCULAR HEMOGLOBIN 30 pg (27.0-31.0); MEAN CORPUSCULAR HGB CONC 32 g/dl (33.0-37.0); MEAN PLATELET VOLUME 8.7 fl (7.4-10.4); MONO # 0.8 (0.1-0.6); MONO % 9.6 % (1.7-9.3); PLATELET COUNT 241 K/mm3 (130-400); RED BLOOD COUNT 3.83 M/mm3 (4.10-5.30); REDCELL DISTRIBUTION WIDTH-CV 14.2 % (11.5-14.5)
[2018-07-23 05:37] LABS: HEMATOCRIT 36.4 % (37.0-47.0)
[2018-07-23 05:42] LABS: ALANINE AMINOTRANSFERASE 13 U/L (9-52); ALKALINE PHOSPHATASE 54 U/L (50-136); ANION GAP 8 mmol/L (7-16); AST,SGOT 26 U/L (15-37); BILIRUBIN,TOTAL 0.3 mg/dL (0.0-1.0); BLOOD UREA NITROGEN 50 mg/dL (7-17); CALCIUM 9.6 mg/dL (8.4-10.2); CARBON DIOXIDE 26 mmol/L (22-30); CHLORIDE 106 mmol/L (98-107); CREATININE, serum 1.49 mg/dL (0.52-1.25); GLUCOSE 123 mg/dL (74-106); POTASSIUM 4.5 mmol/L (3.4-5.0); SODIUM 141 mmol/L (137-145); TOTAL PROTEIN 7.8 gm/dL (6.4-8.2)
[2018-07-23 06:00] LABS: TROPONIN-I < 0.012 ng/mL (0.000-0.035)
[2018-07-23 08:37] VITALS: BP 116/46; PULSE 98; TEMP 98.6
[2018-07-23] MEDS ORDERED: AMBIEN 10MG10 MG PO (09:04)
--- NOTE | 2018-07-23 09:39 | NUR ---
Patient received from Er nurse Bozena. Patient sleepy this am. Breakfast ordered. Vss on 2L o2. unable to be on room air. Inital & 5 page completed. Med rec completed to the best of my ability patient did not bring a home medication list. Will monitor & wait for doctor to round. Rt made aware of orders
[2018-07-23 11:16] LABS: ARTERIAL BLD GAS O2 SATURATION 94.5 % (92-100); ARTERIAL BLOOD GAS BASE EXCESS -7.6 (-2-2); ARTERIAL BLOOD GAS HCO3 19.5 meq/L (22-26); ARTERIAL BLOOD GAS PCO2 46.7 mmHg (35-45); ARTERIAL BLOOD GAS PO2 80.6 mmHg (80-100); ARTERIAL BLOOD GAS pH 7.24 (7.35-7.45)
[2018-07-23 12:40] VITALS: BP 114/42; PULSE 92; TEMP 98.1
--- NOTE | 2018-07-23 13:18 | NUR ---
Chaplain gaona and offered support with patient.
[2018-07-23 15:55] VITALS: BP 113/68; PULSE 81; TEMP 98.2
--- NOTE | 2018-07-23 16:49 | NUR ---
Patient has spend most of the day resting/sleeping. She has been up to the commode. Very weak on her feet. Vss on O2. Patient in a much more plesant mood this evening after rest. She has tolerated her meals. Started on accuchecks. Minimal needs.
--- NOTE | 2018-07-23 18:07 | NUR ---
report received from CYNDEE Ghosh.
--- NOTE | 2018-07-23 18:40 | NUR ---
pt sitting up in bed eating supper.denies any concerns.IVF infusing.pt on O2-sats in high 90s.Vss.will continue to monitor.call light in reach
--- NOTE | 2018-07-23 18:57 | NUR ---
report given to CYNDEE Garcia
[2018-07-23 19:36] VITALS: BP 95/38; PULSE 81; TEMP 97.4
--- NOTE | 2018-07-23 20:05 | NUR ---
i INFORMED PT WE HAD A 1AM BREATHING TX. SHE SAID SHE DOES NOT WANT TO BE WOKEN UP SHE CAN CALL IF SHE WAKES UP AND NEEDS ONE. I TOLD HER OK IM HERE ALL NIGHT LONG IF YOU NEED ANYTHING.
--- NOTE | 2018-07-23 21:28 | NUR ---
Pt in bed napping, no C/O pain at this time, shift assessments complete, left {Pt call light in reach, bed in lowest position.
[2018-07-23 23:54] VITALS: BP 94/38; PULSE 82; TEMP 97.8
[2018-07-24 04:40] VITALS: BP 110/57; PULSE 83; TEMP 97.6
--- NOTE | 2018-07-24 05:45 | NUR ---
Pt slept well during the night, no C/O pain, VS have remained stable with low BP while sleeping.
[2018-07-24 08:10] VITALS: BP 113/59; PULSE 68; TEMP 97.8
--- NOTE | 2018-07-24 08:32 | NUR ---
Assessment complete.patient awake,a/ox3.denies pain or discomfort at this time.Lung sounds diminished throughout.oxygen at 2L/nc.all meds given.IVF infusing.denies pain or discomfort at this time.will continue to monitor.call light in reach
[2018-07-24 09:13] LABS: BASO % 0.2 % (0.0-2.0); EOS # 0.1 (0.0-0.7); EOS % 1.2 % (0-4.0); GRAN # 5.8 (1.4-6.5); GRAN % 68.2 % (42.2-75.2); LYMPH # 1.8 (1.2-3.4); LYMPH % 20.6 % (20.0-51.0); MEAN CELL VOLUME 95 fl (80.0-100.0); MEAN CORPUSCULAR HGB CONC 32 g/dl (33.0-37.0); MEAN PLATELET VOLUME 9.3 fl (7.4-10.4); MONO # 0.8 (0.1-0.6); MONO % 9.4 % (1.7-9.3); PLATELET COUNT 220 K/mm3 (130-400); RED BLOOD COUNT 2.97 M/mm3 (4.10-5.30); REDCELL DISTRIBUTION WIDTH-CV 14.4 % (11.5-14.5)
[2018-07-24 09:22] LABS: HEMATOCRIT 28.2 % (37.0-47.0); MEAN CORPUSCULAR HEMOGLOBIN 30 pg (27.0-31.0)
[2018-07-24 09:29] LABS: ALBUMIN 3.1 gm/dL (3.5-5.0); BILIRUBIN,TOTAL 0.1 mg/dL (0.0-1.0); CALCIUM 8.3 mg/dL (8.4-10.2); CREATININE, serum 1.57 mg/dL (0.52-1.25); POTASSIUM 4.3 mmol/L (3.4-5.0); TOTAL PROTEIN 6.2 gm/dL (6.4-8.2)
[2018-07-24 11:14] VITALS: BP 114/52; PULSE 68; TEMP 97.7
--- NOTE | 2018-07-24 11:42 | NUR ---
Patient lives at home alone in [place], [place] and does have Home Health services via [facility] 3-4x weekly for assistance with shoering, cooking and cleaning. Patient's daughter (Breanna) is also supportive as needed. Patient uses a motorized wheelchair for mobility assistance, has a raised toilet seat and shower chair, and also has home oxygen (2L) and CPAP machine which she uses at night. Patient's primary care physician is Dr. Ana Maria Morales and she also receives medical care from Dr. Raul Shin and Main Garcia as needed. Patient's pharmacy is [facility] and she does have advance directives completed at this time. No further needs at this time and foster care social worker will follow as needed.
[2018-07-24 12:20] LABS: ARTERIAL BLD GAS O2 SATURATION 91.6 % (92-100); ARTERIAL BLD GAS TCO2 CT 22.9; ARTERIAL BLOOD GAS BASE EXCESS -4.5 (-2-2); ARTERIAL BLOOD GAS HCO3 21.6 meq/L (22-26); ARTERIAL BLOOD GAS pH 7.31 (7.35-7.45)
[2018-07-24 16:00] VITALS: BP 126/57; PULSE 69; TEMP 97.9
--- NOTE | 2018-07-24 19:14 | NUR ---
REPORT GIVEN TO CYNDEE ALBARADO
--- NOTE | 2018-07-24 19:55 | NUR ---
Assisted to bedside commode x1 assist. Assessment complete. Right lower lobe crackles otherwise clear. Heart sounds normal. Bowels active x4. No edema noted. Denies pain. Denies other needs at this time. IV to left hand has normal saline infusing at 60ml/hr. Urine sample collected. Call light in reach.
--- NOTE | 2018-07-24 20:14 | NUR ---
PT STATES SHE DOES NOT WANT TO BE WOKEN UP AT NIGHT FOR TX THAT SHE WILL CALL IF SHE WAKES UP AND NEEDS ONE. i SAID OK SOUNDS GOOD.
[2018-07-24 20:29] LABS: COLLECTION METHOD CLEAN CATCH
[2018-07-24 20:46] LABS: MUCOUS Present /lpf; PH 5 (5-8); SQUAMOUS EPITHELIAL 0-2 /hpf; URINE APPEARANCE Clear; URINE BACTERIA None Seen /hpf; URINE BILIRUBIN Negative (NEGATIVE); URINE BLOOD Negative (NEGATIVE); URINE COLOR Yellow; URINE GLUCOSE Negative (NEGATIVE); URINE KETONE Negative (NEGATIVE); URINE LEUKOCYTE ESTERASE Negative (NEGATIVE); URINE NITRATE Negative (NEGATIVE); URINE PROTEIN(semi-quant) Negative (NEGATIVE); URINE RBC 0-2 /hpf; URINE UROBILINOGEN Negative (NEGATIVE)
[2018-07-24 20:49] LABS: CREATININE, serum 1.46 mg/dL (0.52-1.25); FRACTIONAL EXCRETION OF NA+ 0.3 %
[2018-07-24 20:57] VITALS: BP 114/45; PULSE 91
--- NOTE | 2018-07-24 21:29 | NUR ---
Provided 2100 medications to patient as ordered. Refused zoloft. Was refusing novolog, educated patient on purpose of insulin and metformin held at this time. Agreed to take insulin. Stated "I do not want that shot at midnight." Educated patient on purpose of heparin and risk of not taken. Refused. Denies other needs at this time. Call light in reach.
--- NOTE | 2018-07-24 23:03 | NUR ---
Patient requested Zoloft that was eariler refused. Provided to patient at this time. Denies needs. Call light in reach.
--- NOTE | 2018-07-25 01:10 | NUR ---
Resting in bed asleep. Call light in reach.
[2018-07-25 02:09] VITALS: BP 116/57; PULSE 85; TEMP 97.6
--- NOTE | 2018-07-25 04:25 | NUR ---
Resting in bed. Denies needs at this time. Call light in reach.
[2018-07-25 06:39] LABS: BASO % 0.2 % (0.0-2.0); GRAN # 7.9 (1.4-6.5); GRAN % 85.1 % (42.2-75.2); LYMPH % 11.1 % (20.0-51.0); MEAN CELL VOLUME 94 fl (80.0-100.0); MEAN CORPUSCULAR HGB CONC 32 g/dl (33.0-37.0); MEAN PLATELET VOLUME 9.3 fl (7.4-10.4); MONO # 0.3 (0.1-0.6); PLATELET COUNT 225 K/mm3 (130-400); RED BLOOD COUNT 3.07 M/mm3 (4.10-5.30); REDCELL DISTRIBUTION WIDTH-CV 14.5 % (11.5-14.5)
[2018-07-25 06:48] LABS: CALCIUM 8.5 mg/dL (8.4-10.2); CREATININE, serum 1.4 mg/dL (0.52-1.25); POTASSIUM 4.4 mmol/L (3.4-5.0)
[2018-07-25 07:07] LABS: HEMATOCRIT 28.9 % (37.0-47.0); HEMOGLOBIN 9.3 g/dl (12.5-16.0); MEAN CORPUSCULAR HEMOGLOBIN 30 pg (27.0-31.0)
[2018-07-25 07:25] VITALS: BP 135/65; PULSE 81; TEMP 97.9
--- NOTE | 2018-07-25 07:30 | NUR ---
Report given to CYNDEE Louis. Patient had uneventful night. Up eating breakfast this AM. Denies neds. Call light in reach.
--- NOTE | 2018-07-25 09:16 | NUR ---
PT IN BED WITH HOB AT 30 DEGREE ANGLE, DENIES PAIN OR DISCOMFORT. PT HAS O2 ON AT 2L/NC, AND RESP EVEN AND UNLABORED. NO NEEDS AT THIS TIME. CALL LIGHT WITHIN REACH.
[2018-07-25 11:03] VITALS: BP 139/64; PULSE 85; TEMP 97.8
--- NOTE | 2018-07-25 12:37 | NUR ---
First visit from the plaster helper. No needs right now.
--- NOTE | 2018-07-25 15:20 | NUR ---
MILLI met with the patient to review discharge plan and to discuss occupational therapies recommendation of SNF and their concern for the patient being able to cook meals. The patient reports that she wants to return home upon discharge. She states that she has supportive care services through [facility] and that they have talked to her about getting meals set up through a program called [employer]. MILLI attempted to contact Suzan at [facility] to confirm services. MILLI left a voicemail. The patient reports that she has had in home services through [facility] in the past, but is not receiving them at this time. PT has also been ordered. SW to continue to follow.
[2018-07-25 16:09] VITALS: BP 108/47; PULSE 79; TEMP 97.6
--- NOTE | 2018-07-25 17:28 | NUR ---
PT TRYING TO SLEEP MOST OF DAY WITHOUT SUCCESS. DR. BERG WAS NOTIFIED THAT SEROQUEL WAS UNSUCCESSFUL. PT ALSO, REQUEST NOT TO HAVE ANYONE GO IN HER ROOM FROM 2100 TO 0800. PT WANTS TO GET A GOOD NIGHTS REST. PT ADVISED THAT DR. BERG ASKED IF SHE WANTED TO GO HOME AND BECAUSE SHE DID NOT GET ANY SLEEP LAST NIGHT, SHE DID NOT FEEL SHE COULD GO HOME NOW. PT DENIES PAIN OR DISCOMFORT AND HAS BEEN UP TO THE BEDSIDE COMMODE. PT HAD X1 EPISODE OF DIARRHEA THAT WAS INCONTINENT. PT IN BED WITH HOB ELEVATED TO 15 DEGREE ANGLE AND LIGHTS OFF, BECAUSE PT WANTS TO TRY AND SLEEP. CALL LIGHT WITHIN REACH.
--- NOTE | 2018-07-25 18:50 | NUR ---
pt informed we have treatment at 1am scheduled she said no she doesnt want any at night and not even any till 8am tomorrow. I said ok i am here all night so if you need one jsut let your nurse know and i will come give you one. pt voiced understanding.
[2018-07-25 19:29] VITALS: BP 115/48; PULSE 85; TEMP 98
--- NOTE | 2018-07-25 20:45 | NUR ---
Initial shift assessment done- pt states just wants to sleep tonight- ambien, trazadone was ordered to help pt sleep tonight- IV fluids at 60cc/hr-Up to BSC with assist- voiding without issues. o2 at 2L/nc, Tele on-
[2018-07-26 01:46] VITALS: PULSE 70
--- NOTE | 2018-07-26 02:26 | NUR ---
pT ASLEEP HAD REFUSED TX IF ASLEEP. TX NOT DONE.
[2018-07-26 05:12] VITALS: PULSE 74
--- NOTE | 2018-07-26 05:46 | NUR ---
Has been sleeping all night-- refusing vitals "I need my sleep" on Tele all night- SR 70,s SR
[2018-07-26 06:23] LABS: BASO % 0.3 % (0.0-2.0); EOS % 0.2 % (0-4.0); GRAN # 6.9 (1.4-6.5); GRAN % 67.9 % (42.2-75.2); LYMPH # 2.4 (1.2-3.4); LYMPH % 23.8 % (20.0-51.0); MEAN CELL VOLUME 96 fl (80.0-100.0); MEAN CORPUSCULAR HGB CONC 32 g/dl (33.0-37.0); MEAN PLATELET VOLUME 9.1 fl (7.4-10.4); MONO # 0.7 (0.1-0.6); PLATELET COUNT 223 K/mm3 (130-400); RED BLOOD COUNT 3.03 M/mm3 (4.10-5.30); REDCELL DISTRIBUTION WIDTH-CV 14.7 % (11.5-14.5)
[2018-07-26 06:29] LABS: CALCIUM 8.7 mg/dL (8.4-10.2); CREATININE, serum 1.4 mg/dL (0.52-1.25); POTASSIUM 4.3 mmol/L (3.4-5.0)
[2018-07-26 06:31] LABS: HEMOGLOBIN 9.2 g/dl (12.5-16.0); MEAN CORPUSCULAR HEMOGLOBIN 30 pg (27.0-31.0)
[2018-07-26 09:44] VITALS: BP 130/56; PULSE 81; TEMP 97.6
[2018-07-26] MEDS ORDERED: ZITHROMAX500 M2 PO (10:20)
[2018-07-26] MEDS ORDERED: DOXYCYCLINE 10100 MG PO (10:21)
[2018-07-26] MEDS ORDERED: PREDNISONE10 MG PO (10:23)
[2018-07-26] MEDS ORDERED: PROAIR HFA0.09 MG/AC IH (10:24)
--- NOTE | 2018-07-26 11:58 | NUR ---
MILLI attended clinical rounds. The hospitalist discussed getting home health services for PT set up. The patient reports that she would be agreeable and would like to receive them through the agency she already has services through, [facility]. MILLI then contacted Suzan at [facility]. Suzan confirmed that the patient is enrolled in their home worker program and that they could add on services for long-term and PT. MILLI then informed the patient. The patient reports that she is also in need of transportation back home, but that she does not have a portable tank here or at home for the ride back home. She states that her oxygen company is [employer]. MILLI then contacted Osvaldo at [employer]. Osvaldo reports that they can deliver a portable tank to the patient's room around [phone].
--- NOTE | 2018-07-26 16:20 | NUR ---
[facility] delivered a portable oxygen tank to the patient's room. MILLI then contacted transportation services through the patient's insurance, [employer]. The paper sales representative informed SW that they are unable to provide a wheelchair to the patient for the ride. They report if they had a family member to meet the patient at home with a wheelchair, then they could provide a ride for her. MILLI and MILLI macias then met with the patient to inform. The patient reports that she does not have someone to meet her at home and that her daughter, Breanna, does not get off work until 1800. MILLI then contacted the patient's daughter. Breanna reports that she can provide transportation back home for the patient. She reports she will contact medical upon her arrival and requested that the patient then be wheeled down to her vehicle at the visitors entrance. MILLI informed the health unit clerk and the patient's nurse. MILLI also informed the patient. The patient appeared upset that MILLI contacted her daughter. The patient is to discharge back home today, 07/26, with home health services for correction/PT and will resume the home theater installer program through [facility]. No additional needs at this time.
--- NOTE | 2018-07-26 17:49 | NUR ---
Discharged home at this time. Daughter here to transport the patient home. Assisted down to the car via wheelchair.
== END 2018-07-26 17:49 | disposition home health service (06) | DRG 189 ==
LOC: COL.ER 04:47 → MEDICAL 06:44 → SURG 06:44 → MEDICAL 08:39
PROVIDERS: Emergency Medicine; Hospitalist; Internal Medicine Critical Care Medicine; Physician Assistant; ADMIT Hospitalist
DX: J96.21 Acute and chronic respiratory failure with hypoxia (principal); J44.1 Chronic obstructive pulmonary disease with (acute) exacerbation; N17.9 Acute kidney failure, unspecified; Z66 Do not resuscitate; I10 Essential (primary) hypertension; J96.22 Acute and chronic respiratory failure with hypercapnia; E86.0 Dehydration; E03.9 Hypothyroidism, unspecified; E11.9 Type 2 diabetes mellitus without complications; E78.5 Hyperlipidemia, unspecified; F17.210 Nicotine dependence, cigarettes, uncomplicated; D64.9 Anemia, unspecified
CPT/HCPCS: 99232-AI; 99233-AI; 99239; G0378; J1815; J2920; J2930; J7030; J7512

== ENCOUNTER 2018-09-10 14:57 | Emergency (ER) | payer MEDICARE, MEDICAID ==
[~2018-09-10] VITALS: Ht 172.7 cm; Wt 76.4 kg
[~2018-09-10 14:57] MED LIST changes: +AMBIEN 10MG10 MG PO; +DOXYCYCLINE 10100 MG PO; +INTERMEZZO SL; +LEVOXYL0.025 MG PO; +PREDNISONE1 MG PO; +PROAIR HFA0.09 MG/AC IH; +THEO-DUR 1100 MG/TAB PO; +ZEBETA 5MG5 MG PO; +ZITHROMAX500 M2 PO; +ZOLOFT 25MG25 MG PO
[2018-09-10] MEDS ORDERED: PREDNISONE20 MG PO (15:15)
[2018-09-10] MEDS ORDERED: MICRONASE2.5 MG PO (15:32)
[2018-09-10 15:49] VITALS: PULSE 65; TEMP 98.3
== END 2018-09-10 15:50 | disposition home or self-care (01) ==
LOC: COL.ER 14:57
DX: S90.31XA Contusion of right foot, initial encounter (principal); E11.65 Type 2 diabetes mellitus with hyperglycemia; Z79.84 Long term (current) use of oral hypoglycemic drugs; X58.XXXA Exposure to other specified factors, initial encounter

== ENCOUNTER 2018-09-29 15:23 | Day surgery (SDC) | payer MEDICARE, MEDICAID ==
[~2018-09-29] VITALS: Ht 160.7 cm; Wt 74.2 kg
[~2018-09-29 15:23] MED LIST changes: +MICRONASE2.5 MG PO
[2018-09-29] MEDS ORDERED: PRAVACHOL 40MG40 MG PO (16:32)
[2018-09-29] MEDS ORDERED: PREDNISONE 5MG5 MG PO (16:35)
[2018-09-29 17:48] LABS: CALCIUM 9.2 mg/dL (8.4-10.2); CREATININE, serum 1.39 (0.52-1.25); POTASSIUM 4.6 mmol/L (3.4-5.0)
--- NOTE | 2018-09-29 19:22 | NUR ---
Pt arrived this afternoon for procedure tomorrow, admit assessments complete,
[2018-09-29 19:56] VITALS: BP 141/80; PULSE 63; TEMP 98.1
--- NOTE | 2018-09-29 19:56 | NUR ---
Pt sitting at side of bed. Education provided on Bowel prep and prep for colonoscopy in AM. Pt denies pain. No distress noted. Assessment WNL. Lungs clear. Abdomen soft and nontender. BS+. A&O x3. Answers and asks questions appropriately. Bowel prep initiated at this time. BSC at bedside for PRN use. No needs noted. Will continue to monitor.
--- NOTE | 2018-09-29 21:20 | NUR ---
Bowel prep complete. Well tolerated by pt. Pt denies urge to have BM. Will continue to monitor.
[2018-09-29 23:50] VITALS: BP 130/50; PULSE 64; TEMP 98.5
--- NOTE | 2018-09-30 00:30 | NUR ---
Pt sleeping. Pt awoken d/t soiled brief. Pt cleaned. Bedding and brief changed.
--- NOTE | 2018-09-30 02:34 | NUR ---
Pt has been up to BSC frequently within the last 2 hours. Pt denies any needs.
[2018-09-30 05:00] VITALS: BP 132/55; PULSE 62; TEMP 98.4
--- NOTE | 2018-09-30 06:00 | NUR ---
IV site inserted in L FA with one attempt. Normal saline hung per MD order prior to colonoscopy procedure.
--- NOTE | 2018-09-30 06:40 | NUR ---
Report given to Endoscopy nurse. Consent signed.
--- NOTE | 2018-09-30 08:56 | NUR ---
SW attended clinical rounds. Patient will discharge later today. Patient lives at home alone. Patient's PCP is Dr Morales and she obtains prescriptions from [facility]. Patient has a motorized wheelchair, O2, and bath aids at home. Patient also uses [facility] for cleaning, bathing, and meal prep 3-4 times a weeks. SW confirmed this with [facility]. Patient has used PT, OT, and nursing in the past but [facility] reports patient no longer requires those services. Patient does have advanced directive. SW does not anticipate any discharge needs.
--- NOTE | 2018-09-30 10:04 | NUR ---
Pt resting in bed watching TV, no C/O pain at this time, Pt up earlier to restroom on own, shift assessments complete, left Pt call light in reach, bed in lowest position.
[2018-09-30 11:18] VITALS: BP 106/63; PULSE 70
--- NOTE | 2018-09-30 11:37 | NUR ---
Pt discharged to home, transportation arrived for release.
== END 2018-09-30 11:39 | disposition home or self-care (01) ==
LOC: SDCO 15:23 → MEDICAL 15:27 → SDCO 09-30 07:00
PROVIDERS: Nurse Practitioner Family
DX: K52.89 Other specified noninfective gastroenteritis and colitis (principal); I12.9 Hypertensive chronic kidney disease with stage 1 through stage 4 chronic kidney disease, or unspecified chronic kidney disease; E11.22 Type 2 diabetes mellitus with diabetic chronic kidney disease; N18.9 Chronic kidney disease, unspecified; E03.9 Hypothyroidism, unspecified; G47.00 Insomnia, unspecified; E78.5 Hyperlipidemia, unspecified; F32.9 Major depressive disorder, single episode, unspecified; J44.9 Chronic obstructive pulmonary disease, unspecified; Z99.81 Dependence on supplemental oxygen; F17.210 Nicotine dependence, cigarettes, uncomplicated; Z79.899 Other long term (current) drug therapy; Z80.42 Family history of malignant neoplasm of prostate; G61.0 Guillain-Barre syndrome; G47.33 Obstructive sleep apnea (adult) (pediatric)
CPT/HCPCS: OP; J2250; J3010; J7030

== ENCOUNTER 2018-11-12 23:24 | Emergency (ER) | payer MEDICARE, MEDICAID ==
[~2018-11-12] VITALS: Ht 172.7 cm; Wt 73.6 kg
[~2018-11-12 23:24] MED LIST changes: +PRAVACHOL 40MG40 MG PO; +PREDNISONE 5MG5 MG PO
[2018-11-12 23:25] VITALS: TEMP 98
[2018-11-13 00:26] LABS: BASO # 0.1 (0.0-0.2); BASO % 0.5 % (0.0-2.0); EOS # 0.5 (0.0-0.7); EOS % 5.6 % (0-4.0); GRAN # 5.6 (1.4-6.5); HEMATOCRIT 37.3 % (37.0-47.0); HEMOGLOBIN 11.5 g/dl (12.5-16.0); LYMPH # 2.3 (1.2-3.4); LYMPH % 24.7 % (20.0-51.0); MEAN CELL VOLUME 98 fl (80.0-100.0); MEAN CORPUSCULAR HEMOGLOBIN 30 pg (27.0-31.0); MEAN CORPUSCULAR HGB CONC 31 g/dl (33.0-37.0); MEAN PLATELET VOLUME 8.9 fl (7.4-10.4); MONO # 0.9 (0.1-0.6); MONO % 9.8 % (1.7-9.3); PLATELET COUNT 221 K/mm3 (130-400); RED BLOOD COUNT 3.79 M/mm3 (4.10-5.30)
[2018-11-13 00:39] LABS: ALANINE AMINOTRANSFERASE 55 U/L (9-52); ALBUMIN 3.8 gm/dL (3.5-5.0); ALKALINE PHOSPHATASE 64 U/L (50-136); ANION GAP 7 mmol/L (7-16); AST,SGOT 75 U/L (15-37); BILIRUBIN,TOTAL 0.4 mg/dL (0.0-1.0); BLOOD UREA NITROGEN 43 mg/dL (7-17); CALCIUM 8.9 mg/dL (8.4-10.2); CARBON DIOXIDE 39 mmol/L (22-30); CHLORIDE 95 mmol/L (98-107); CREATININE, serum 1.35 (0.52-1.25); GLUCOSE 154 mg/dL (74-106); LIPASE 87 U/L (23-300); MAGNESIUM 1.9 mg/dL (1.6-2.3); PHOSPHOROUS 4.2 mg/dL (2.5-4.5); POTASSIUM 4.7 mmol/L (3.4-5.0); SODIUM 140 mmol/L (137-145); TOTAL PROTEIN 7.7 gm/dL (6.4-8.2)
[2018-11-13] MEDS ORDERED: ENTOCORT EC3 MG PO (00:50)
[2018-11-13] MEDS ORDERED: PREDNISONE10 MG (00:51)
[2018-11-13] MEDS ORDERED: LASIX 20MG TABL20 MG PO (00:51)
[2018-11-13 01:07] LABS: TROPONIN-I < 0.012 ng/mL (0.000-0.035)
[2018-11-13 01:23] LABS: COLLECTION METHOD CLEAN CATCH
[2018-11-13 02:03] LABS: PH 7 (5-8); SQUAMOUS EPITHELIAL None Seen /hpf; URINE APPEARANCE Clear; URINE BACTERIA None Seen /hpf; URINE BILIRUBIN Negative (NEGATIVE); URINE BLOOD Negative (NEGATIVE); URINE COLOR Yellow; URINE GLUCOSE Negative (NEGATIVE); URINE KETONE Negative (NEGATIVE); URINE LEUKOCYTE ESTERASE 3+ (NEGATIVE); URINE NITRATE Negative (NEGATIVE); URINE PROTEIN(semi-quant) Negative (NEGATIVE); URINE UROBILINOGEN Negative (NEGATIVE)
[2018-11-13] MEDS ORDERED: OMNICEF 300MG300 MG PO (03:19)
[2018-11-13] MEDS ORDERED: ZOFRAN ODT4 MG PO (03:19)
[2018-11-13 04:07] VITALS: BP 129/75; PULSE 63
== END 2018-11-13 04:36 | disposition home or self-care (01) ==
LOC: COL.ER 23:24
PROVIDERS: Emergency Medicine
DX: N39.0 Urinary tract infection, site not specified (principal); E11.9 Type 2 diabetes mellitus without complications; I10 Essential (primary) hypertension; J44.9 Chronic obstructive pulmonary disease, unspecified; Z99.81 Dependence on supplemental oxygen; Z87.891 Personal history of nicotine dependence; Z79.51 Long term (current) use of inhaled steroids
CPT/HCPCS: A4216; C9113; J0696; J2060; J2405; J7040

== ENCOUNTER 2018-11-26 10:11 | Emergency (ER) | payer MEDICARE ==
[~2018-11-26] VITALS: Ht 172.7 cm; Wt 74.5 kg
[~2018-11-26 10:11] MED LIST changes: +PREDNISONE10 MG; +ZOFRAN ODT4 MG PO
[2018-11-26 10:15] VITALS: TEMP 97.2
[2018-11-26 11:01] LABS: BASO % 0.4 % (0.0-2.0); EOS # 0.2 (0.0-0.7); EOS % 3.6 % (0-4.0); GRAN # 4.2 (1.4-6.5); HEMOGLOBIN 10.4 g/dl (12.5-16.0); LYMPH # 1.6 (1.2-3.4); LYMPH % 23.5 % (20.0-51.0); MEAN CELL VOLUME 97 fl (80.0-100.0); MEAN CORPUSCULAR HEMOGLOBIN 30 pg (27.0-31.0); MEAN CORPUSCULAR HGB CONC 32 g/dl (33.0-37.0); MEAN PLATELET VOLUME 8.5 fl (7.4-10.4); MONO # 0.6 (0.1-0.6); MONO % 9.1 % (1.7-9.3); PLATELET COUNT 205 K/mm3 (130-400); RED BLOOD COUNT 3.42 M/mm3 (4.10-5.30); REDCELL DISTRIBUTION WIDTH-CV 12.9 % (11.5-14.5)
[2018-11-26 11:06] LABS: PROTHROMBIN TIME 11.2 SECONDS (9.7-12.8)
[2018-11-26 11:13] LABS: ALANINE AMINOTRANSFERASE 41 U/L (9-52); ALBUMIN 3.6 gm/dL (3.5-5.0); ALKALINE PHOSPHATASE 46 U/L (50-136); ANION GAP 8 mmol/L (7-16); AST,SGOT 54 U/L (15-37); BILIRUBIN,TOTAL 0.4 mg/dL (0.0-1.0); BLOOD UREA NITROGEN 41 mg/dL (7-17); CALCIUM 9.3 mg/dL (8.4-10.2); CARBON DIOXIDE 33 mmol/L (22-30); CHLORIDE 102 mmol/L (98-107); GLUCOSE 113 mg/dL (74-106); LIPASE 206 U/L (23-300); POTASSIUM 4.8 mmol/L (3.4-5.0); SODIUM 142 mmol/L (137-145); TOTAL PROTEIN 7.2 gm/dL (6.4-8.2)
[2018-11-26 11:29] LABS: TROPONIN-I < 0.012 ng/mL (0.000-0.035)
[2018-11-26] MEDS ORDERED: AMBIEN 10MG10 MG PO (11:34)
[2018-11-26 12:01] LABS: COLLECTION METHOD CLEAN CATCH
[2018-11-26 12:11] LABS: PH 5 (5-8); SQUAMOUS EPITHELIAL None Seen /hpf; URINE APPEARANCE Clear; URINE BACTERIA None Seen /hpf; URINE BILIRUBIN Negative (NEGATIVE); URINE BLOOD Negative (NEGATIVE); URINE COLOR Yellow; URINE GLUCOSE Negative (NEGATIVE); URINE KETONE Negative (NEGATIVE); URINE LEUKOCYTE ESTERASE Negative (NEGATIVE); URINE NITRATE Negative (NEGATIVE); URINE PROTEIN(semi-quant) Negative (NEGATIVE); URINE RBC 0-2 /hpf; URINE UROBILINOGEN Negative (NEGATIVE)
[2018-11-26 12:29] VITALS: BP 123/59; PULSE 60
[2018-11-28] MEDS ORDERED: ALEVE 220MG220 MG PO (20:14)
== END 2018-11-26 12:50 | disposition home or self-care (01) ==
LOC: COL.ER 10:11
PROVIDERS: Emergency Medicine
DX: R53.81 Other malaise (principal); I12.9 Hypertensive chronic kidney disease with stage 1 through stage 4 chronic kidney disease, or unspecified chronic kidney disease; E11.22 Type 2 diabetes mellitus with diabetic chronic kidney disease; N18.9 Chronic kidney disease, unspecified; D64.9 Anemia, unspecified; J44.9 Chronic obstructive pulmonary disease, unspecified; F17.210 Nicotine dependence, cigarettes, uncomplicated; Z99.81 Dependence on supplemental oxygen; Z79.51 Long term (current) use of inhaled steroids
CPT/HCPCS: J2060; J7040

== ENCOUNTER → 2018-12-08 | Outpatient (CLI) | payer MEDICARE ==
[~2018-12-08] MED LIST changes: +ALEVE 220MG220 MG PO; +MEDROL 4MG DOSPA4 MG PO; +MELAT3MGTAB PO; +PERFOROMIS20 MCG/2 M IH
== END ==
LOC: COL.RAD 15:27
DX: J44.9 Chronic obstructive pulmonary disease, unspecified (principal); S22.42XA Multiple fractures of ribs, left side, initial encounter for closed fracture; S22.000A Wedge compression fracture of unspecified thoracic vertebra, initial encounter for closed fracture; M81.0 Age-related osteoporosis without current pathological fracture

== ENCOUNTER → 2018-12-15 | Outpatient (CLI) | payer MEDICARE ==
[~2018-12-15] MED LIST changes: +ASPIRIN 81M81 MG/TA2 PO; +ELIQUIS 2.5 PO; +IBU400 MG PO; +LOMOTIL 0.025 M1 TAB PO; +MELATONIN 3MG PO; +MULTAQ400 MG PO; +NOVOLOG 100U100 U/M1 SQ; +PROBIOTIC-MAJOR PO
[2018-12-15 20:25] LABS: COLLECTION METHOD CLEAN CATCH
[2018-12-15 20:41] LABS: MUCOUS Present /lpf; PH 6 (5-8); SQUAMOUS EPITHELIAL 0-2 /hpf; URINE APPEARANCE Hazy; URINE BACTERIA Rare /hpf; URINE BILIRUBIN Negative (NEGATIVE); URINE BLOOD Negative (NEGATIVE); URINE COLOR Yellow; URINE GLUCOSE Negative (NEGATIVE); URINE KETONE Negative (NEGATIVE); URINE LEUKOCYTE ESTERASE Trace (NEGATIVE); URINE NITRATE Negative (NEGATIVE); URINE PROTEIN(semi-quant) Negative (NEGATIVE); URINE RBC 0-2 /hpf; URINE UROBILINOGEN Negative (NEGATIVE)
== END ==
LOC: ZCOL.LAB 17:46
PROVIDERS: Internal Medicine
DX: R50.9 Fever, unspecified (principal); R82.90 Unspecified abnormal findings in urine; R09.89 Other specified symptoms and signs involving the circulatory and respiratory systems

== ENCOUNTER 2018-12-16 00:51 | Inpatient (IN) | payer MEDICARE ==
[~2018-12-16] VITALS: Ht 172.7 cm; Wt 77.3 kg
[2018-12-16] VITALS (539 sets, daily range): BP systolic 93–120; BP diastolic 39–58; PULSE 60–71; TEMP 97.9–98.7; O2SAT 85–100
[~2018-12-16 00:51] MED LIST changes: -ASPIRIN 81M81 MG/TA2 PO; -ELIQUIS 2.5 PO; -IBU400 MG PO; -LEVOXYL0.025 MG PO; -LOMOTIL 0.025 M1 TAB PO; -MELATONIN 3MG PO; -MULTAQ400 MG PO; -NOVOLOG 100U100 U/M1 SQ; -PRAVACHOL 40MG40 MG PO; -PROBIOTIC-MAJOR PO; -ZEBETA 5MG5 MG PO
[2018-12-16 01:20] LABS: BASO % 0.2 % (0.0-2.0); EOS # 0.2 (0.0-0.7); EOS % 1.5 % (0-4.0); GRAN # 7.7 (1.4-6.5); HEMATOCRIT 27.4 % (37.0-47.0); HEMOGLOBIN 8.6 g/dl (12.5-16.0); INR 1.2 (0.8-3.0); LYMPH # 1.3 (1.2-3.4); LYMPH % 12.9 % (20.0-51.0); MEAN CELL VOLUME 99 fl (80.0-100.0); MEAN CORPUSCULAR HEMOGLOBIN 31 pg (27.0-31.0); MEAN CORPUSCULAR HGB CONC 31 g/dl (33.0-37.0); MEAN PLATELET VOLUME 9.1 fl (7.4-10.4); MONO # 0.5 (0.1-0.6); MONO % 5.5 % (1.7-9.3); PLATELET COUNT 268 K/mm3 (130-400); PROTHROMBIN TIME 13.5 SECONDS (9.7-12.8); RED BLOOD COUNT 2.78 M/mm3 (4.10-5.30); REDCELL DISTRIBUTION WIDTH-CV 13.4 % (11.5-14.5)
[2018-12-16 01:23] LABS: ALBUMIN 3.2 gm/dL (3.5-5.0); BILIRUBIN,TOTAL 0.8 mg/dL (0.0-1.0); CALCIUM 7.6 mg/dL (8.4-10.2); CREATININE, serum 1.66 (0.52-1.25); POTASSIUM 3.6 mmol/L (3.4-5.0); TOTAL PROTEIN 6.5 gm/dL (6.4-8.2)
[2018-12-16 01:48] LABS: TROPONIN-I 0.037 ng/mL (0.000-0.035)
[2018-12-16] MEDS ORDERED: AMBIEN 5MG TABLE5 MG PO (03:29)
[2018-12-16] MEDS ORDERED: ENTOCORT EC3 MG PO ×2 (03:30→07:44)
[2018-12-16] MEDS ORDERED: PROBIOTIC-MAJOR PO (03:51)
[2018-12-16] MEDS ORDERED: IBU400 MG PO (03:52)
[2018-12-16] MEDS ORDERED: LOMOTIL 0.025 M1 TAB PO (03:52)
[2018-12-16 06:14] LABS: MAGNESIUM 1.2 mg/dL (1.6-2.3)
[2018-12-16 06:32] LABS: TROPONIN-I 0.261 ng/mL (0.000-0.035)
[2018-12-16] MEDS ORDERED: ASPIRIN 81M81 MG/TA2 PO (06:46)
--- NOTE | 2018-12-16 07:35 | NUR ---
Vancomycin Initial Dosing Pharmacy Note Indication/duration: Pneumonia LABS: Crea,Serum = 1.66, est Crcl 25 mL/min Recommendation: Will follow serum creatinine, and obtain trough level on 12/19 Loading dose: 1.5 grams Maintenance dose: 1.5 grams every 24 hours Trough goal: 15-20 ug/mL
[2018-12-16] MEDS ORDERED: ZEBETA 5MG5 MG PO (07:44)
[2018-12-16] MEDS ORDERED: LASIX 20MG TABL20 MG PO (07:44)
[2018-12-16] MEDS ORDERED: PRAVACHOL 40MG40 MG PO (07:44)
[2018-12-16] MEDS ORDERED: LEVOXYL0.025 MG PO (07:44)
[2018-12-16] MEDS ORDERED: ZOFRAN 4MG T4 MG/TAB PO (07:47)
[2018-12-16] MEDS ORDERED: PROTONIX 40MG T40 MG PO (07:48)
[2018-12-16] MEDS ORDERED: IPRATROPIUM BROM3 M1 IH ×2 (07:49)
[2018-12-16] MEDS ORDERED: MELATONIN 3MG PO (07:49)
[2018-12-16] MEDS ORDERED: PERFOROMIS20 MCG/2 M IH (07:50)
--- NOTE | 2018-12-16 08:00 | NUR ---
DR ALLEN NOTIFIED OF PULMONOLOGY CONSULT
--- NOTE | 2018-12-16 08:03 | NUR ---
DR ARANA NOTIFIED OF CARDIOLOGY CONSULT
--- NOTE | 2018-12-16 10:53 | NUR ---
PT VOIDED IN BEDSIDE COMMODE. ATTEMPTED TO OBTAIN UA BUT SMALL AMT OF STOOL NOTED IN URINE.
--- NOTE | 2018-12-16 11:07 | NUR ---
PT BEING TRANSFERRED TO [facility] FOR VQ SCAN VIA WHEELCHAIR. PT TRANSFERRED WITH [facility] IN[facility].
--- NOTE | 2018-12-16 12:22 | NUR ---
PT RETURNED FROM [facility]
--- NOTE | 2018-12-16 14:32 | NUR ---
attempted again to obtain ua with patient's void but patient had bowel movement again.
--- NOTE | 2018-12-16 15:03 | NUR ---
asphalt worker met with patient to discuss discharge planning. Patient was recently hospitlized and discharged to skilled care at [facility]. Patient states that she does not wish to return to skilled care, rather wishes to return home. Patient is open to having home health, however, requires a primary care provider and she is trying to find one currently. Patient has used [facility] and would want to utilize them again. Worker advised that therapy will be ordered when physician feels appropriate and they will assist with appropriate disposition recommendations. Worker provided information on [address] [place] [address] and patient states she would be open to this practice. Worker secured an appointment with Dr Padilla for next at 10:00. Case Management will continue to follow and assist as needed with safe discharge plan.
--- NOTE | 2018-12-16 15:24 | NUR ---
CLARIFIED WITH DR ARANA THAT HE WANTS TO DISONTINUE CARDIZEM GTT AND PT IS OK TO GO TO THE FLOOR FROM HIS STANDPOINT.
--- NOTE | 2018-12-16 16:20 | NUR ---
REPORT CALLED TO ANDREINA COTTER.
--- NOTE | 2018-12-16 16:20 | NUR ---
PT TRANSFERRED TO MEDICAL ROOM 314 VIA WHEELCHAIR. PT'S BELONGINGS TRANSFERRED WITH PATIENT. ASSISTED PT TO RECLINER CHAIR. CONTACT MADE WITH ANDREINA COTTER UPON TRANSFER.
--- NOTE | 2018-12-16 18:25 | NUR ---
Patient transferred from ICU to room 314. Patient is sitting up in recliner, awake and alert. Feet are elevated. IV is noted to right forearm and left AC, fluids at 20/hr. Lungs are clear bilaterally. Heart is regular rate and rhythm. Telemetry is in place. Has substernal pain to chest which she verbalized was from chest compressions, pain worsens with movement. Pulses are palpable radially and pedal. No edema noted. Is wearing the baseline 2L o2 via nc. Skin is warm dry and intact. Does state that coccyx is a little sore from sitting so much. States does not walk, can transfer to commode and bed but due to back injury she was advised by her physician not to ambulate so she uses a motorized scooter. Call light an personal items are within reach.
[2018-12-17 04:38] VITALS: BP 102/45; PULSE 69; TEMP 97.8
[2018-12-17 07:16] VITALS: BP 111/62; PULSE 63; TEMP 97.6
[2018-12-17 07:26] LABS: COLLECTION METHOD CLEAN CATCH
[2018-12-17 07:40] LABS: MEAN CELL VOLUME 98 fl (80.0-100.0); MEAN CORPUSCULAR HGB CONC 31 g/dl (33.0-37.0); PLATELET COUNT 259 K/mm3 (130-400); RED BLOOD COUNT 2.48 M/mm3 (4.10-5.30); REDCELL DISTRIBUTION WIDTH-CV 13.2 % (11.5-14.5)
[2018-12-17 07:41] LABS: MUCOUS Present /lpf; PH 5 (5-8); SQUAMOUS EPITHELIAL 0-2 /hpf; URINE APPEARANCE Clear; URINE BACTERIA Rare /hpf; URINE BILIRUBIN Negative (NEGATIVE); URINE BLOOD Negative (NEGATIVE); URINE COLOR Yellow; URINE GLUCOSE Negative (NEGATIVE); URINE KETONE Trace (NEGATIVE); URINE LEUKOCYTE ESTERASE Negative (NEGATIVE); URINE NITRATE Negative (NEGATIVE); URINE PROTEIN(semi-quant) Negative (NEGATIVE); URINE RBC 0-2 /hpf; URINE UROBILINOGEN Negative (NEGATIVE)
[2018-12-17 07:41] LABS: HEMATOCRIT 24.3 % (37.0-47.0); HEMOGLOBIN 7.4 g/dl (12.5-16.0); MEAN CORPUSCULAR HEMOGLOBIN 30 pg (27.0-31.0)
[2018-12-17 07:48] LABS: CALCIUM 7.7 mg/dL (8.4-10.2); CREATININE, serum 1.59 (0.52-1.25); POTASSIUM 3.4 mmol/L (3.4-5.0)
[2018-12-17 08:17] LABS: HYPOCHROMIA 1+; LYMPHOCYTE 3 % (20.0-51.0); NEUTROPHILS 94 % (42.0-75.2); PLATELET ESTIMATE NORMAL (NORMAL)
--- NOTE | 2018-12-17 10:19 | NUR ---
Pt assessment complete. Pt is sitting up in bed upon entry. She is A/O x3. Her breathing is even and unlabored on 2.5 L O2 via NC. Pt denies SOB. No pain at this time. Pt ate breakfast without issues this morning. POC and potassium replacement discussed with patient and plan to transition to potassium pills. Pt denies needs at this time. Plan to have a bed bath later today. Call light within reach.
--- NOTE | 2018-12-17 10:51 | NUR ---
Patient was sleeping.
[2018-12-17 11:47] VITALS: BP 105/54; PULSE 75; TEMP 97.4
[2018-12-17 16:19] VITALS: BP 93/44; PULSE 66; TEMP 97.5
--- NOTE | 2018-12-17 18:52 | NUR ---
Pt had uneventful day. Breathing remained unchanged on 2.5L O2 via NC. No pain through the day. Sugars remained elevated, treated per protocol. Patient remained in NSR. Up in chair at this time. Call light within reach.
[2018-12-17 19:45] VITALS: BP 90/39; PULSE 65; TEMP 97.7
[2018-12-18] VITALS (7 sets, daily range): BP systolic 90–138; BP diastolic 35–59; PULSE 68–91; TEMP 97.3–98.6
[2018-12-18 07:55] LABS: MEAN CELL VOLUME 97 fl (80.0-100.0); MEAN CORPUSCULAR HGB CONC 32 g/dl (33.0-37.0); MEAN PLATELET VOLUME 9.1 fl (7.4-10.4); PLATELET COUNT 261 K/mm3 (130-400); REDCELL DISTRIBUTION WIDTH-CV 13.6 % (11.5-14.5)
[2018-12-18 07:58] LABS: HEMATOCRIT 22.2 % (37.0-47.0); MEAN CORPUSCULAR HEMOGLOBIN 30 pg (27.0-31.0)
[2018-12-18 08:06] LABS: CALCIUM 7.9 mg/dL (8.4-10.2); CREATININE, serum 2.01 (0.52-1.25); POTASSIUM 4.1 mmol/L (3.4-5.0)
--- NOTE | 2018-12-18 10:14 | NUR ---
PATIENT ASSESSMENT COMPLETED. SHE COMPLAINS OF RIGHT SHOULDER PAIN REQUESTS HEAT BLANKET. PAIN IS BETTER THAN THIS MORNING MEDICATION IS WORKING PER HER REPORT. SHE AMBULATES TO THE RESTROOM AND BACK TO THE CHAIR WITHOUT DIFFICULTY USING HER WALKER AND STANDBY ASSIST. NO OTHER NEEDS AT THIS TIME.
[2018-12-18 11:26] LABS: LYMPHOCYTE 3 % (20.0-51.0); NEUTROPHILS 96 % (42.0-75.2); PLATELET ESTIMATE NORMAL (NORMAL)
--- NOTE | 2018-12-18 14:33 | NUR ---
PATIENT UP IN CHAIR SHE DENIES NAY NEEDS OR CONCERNS AT THIS TIME.
[2018-12-18 16:38] LABS: HEMATOCRIT 23.2 % (37.0-47.0); HEMOGLOBIN 7.5 g/dl (12.5-16.0)
--- NOTE | 2018-12-18 18:38 | NUR ---
PATIENT UP IN THE CHAIR WATCHING TELEVISION. SHE DENIES OTHER NEEDS OR CONCERNS AT THIS TIME.
[2018-12-19 03:39] VITALS: BP 136/44; PULSE 75; TEMP 97.7
[2018-12-19 05:45] LABS: ARTERIAL BLD GAS O2 SATURATION 93.2 % (92-100); ARTERIAL BLD GAS TCO2 CT 30.6; ARTERIAL BLOOD GAS BASE EXCESS 4.2 (-2-2); ARTERIAL BLOOD GAS HCO3 29.2 meq/L (22-26); ARTERIAL BLOOD GAS PCO2 46.1 mmHg (35-45); ARTERIAL BLOOD GAS PO2 69.3 mmHg (80-100); ARTERIAL BLOOD GAS pH 7.42 (7.35-7.45)
[2018-12-19 07:13] LABS: CALCIUM 8.3 mg/dL (8.4-10.2); CREATININE, serum 2.38 (0.52-1.25); MEAN CELL VOLUME 99 fl (80.0-100.0); MEAN CORPUSCULAR HGB CONC 31 g/dl (33.0-37.0); PLATELET COUNT 288 K/mm3 (130-400); POTASSIUM 3.9 mmol/L (3.4-5.0); RED BLOOD COUNT 2.39 M/mm3 (4.10-5.30); REDCELL DISTRIBUTION WIDTH-CV 13.5 % (11.5-14.5)
[2018-12-19 07:15] LABS: HEMATOCRIT 23.7 % (37.0-47.0); HEMOGLOBIN 7.4 g/dl (12.5-16.0); MEAN CORPUSCULAR HEMOGLOBIN 31 pg (27.0-31.0)
[2018-12-19 07:50] LABS: HYPOCHROMIA 2+; LYMPHOCYTE 2 % (20.0-51.0); NEUTROPHILS 96 % (42.0-75.2); PLATELET ESTIMATE NORMAL (NORMAL)
[2018-12-19 08:23] VITALS: BP 107/41; PULSE 88; TEMP 98
--- NOTE | 2018-12-19 08:50 | NUR ---
Patient in bed resting. Alert and oriented x 3. Shift assessment complete. Assisted patient to restroom, x 1 assist with walker; steady gait. Denies pain at this time. States she hasnt been able to sleep well, requests sleep aid. Educated patient on use of sleep aid and when to take. Denies further needs at this time.
--- NOTE | 2018-12-19 11:02 | NUR ---
SW met with the patient to review discharge plan and to discuss PT's recommendation of home with home health. The patient reports that she would prefer post-acute rehab now. She states that she needs more therapy, before returning back home. MILLI presented and explained the patient choice form. The patient preferred 1) [facility] 2) [facility]. Patient choice form signed by the patient and she was provided a copy. MILLI contacted and faxed a referral to both facilities. SW awaiting their screenings.
[2018-12-19 11:31] VITALS: BP 124/55; PULSE 79; TEMP 97.7
--- NOTE | 2018-12-19 12:23 | NUR ---
Initial visit; Patient thanked Deputy Sheriff Bailiff for looking in on her and offering God's blessings.
--- NOTE | 2018-12-19 14:32 | NUR ---
MILLI attended a meeting with the patient and clinical team from [facility]. The patient owes $245.00 from a previous stay at [facility] and the clinical team discussed their terms for acceptance back. MILLI then followed up with the patient. The patient reports that she would rather just pursue [facility]. MILLI to update [facility]. MILLI also updated Mary at [facility]. Mary reports that they would accept the patient back. MILLI to inform the patient and will continue to follow.
[2018-12-19 16:04] VITALS: BP 131/53; PULSE 81; TEMP 98
--- NOTE | 2018-12-19 17:52 | NUR ---
Patient has done well throughout the day. Has been sitting up in the recliner for meals. Currently watching TV in the recliner. Patient denies pain. Denies further needs at this time. WIll report off to police shift commander.
[2018-12-19 21:03] VITALS: BP 147/49; PULSE 85; TEMP 97.9
[2018-12-19 23:23] VITALS: BP 117/37; PULSE 84; TEMP 98
[2018-12-20] VITALS (9 sets, daily range): BP systolic 115–150; BP diastolic 45–80; PULSE 71–92; TEMP 97.5–98.3
[2018-12-20 06:16] LABS: CALCIUM 8.1 mg/dL (8.4-10.2); CREATININE, serum 2.23 (0.52-1.25); POTASSIUM 3.7 mmol/L (3.4-5.0)
[2018-12-20 06:32] LABS: MEAN CELL VOLUME 97 fl (80.0-100.0); MEAN CORPUSCULAR HGB CONC 32 g/dl (33.0-37.0); MEAN PLATELET VOLUME 8.7 fl (7.4-10.4); PLATELET COUNT 284 K/mm3 (130-400); RED BLOOD COUNT 2.22 M/mm3 (4.10-5.30); REDCELL DISTRIBUTION WIDTH-CV 13.7 % (11.5-14.5)
[2018-12-20 06:48] LABS: HEMATOCRIT 21.5 % (37.0-47.0); HEMOGLOBIN 6.8 g/dl (12.5-16.0); MEAN CORPUSCULAR HEMOGLOBIN 31 pg (27.0-31.0)
[2018-12-20 07:54] LABS: LYMPHOCYTE 10 % (20.0-51.0); NEUTROPHILS 83 % (42.0-75.2); PLATELET ESTIMATE NORMAL (NORMAL)
[2018-12-20 07:55] LABS: HYPOCHROMIA 2+
--- NOTE | 2018-12-20 09:51 | NUR ---
Assessment completed, alert/oriented, vital signs stable, denies pain or discomfort, hemaglobin 6.8 this morning/ notified hospitalist, consulting GI and giving 1 unit PRBC/ will revaluate blood counts later today after the transfusion, heart RRR/distal pulses are palpable, lungs CTA/ no reps.difficulty, abdomen soft and non tender, occult stool negtaive, denies any blood sptum/urine/emesis/stool, sitting up in the chair, we have discussed plan of care with her and she verbalized understanding and wish to proceed
--- NOTE | 2018-12-20 19:45 | NUR ---
Report received from CYNDEE Macias
[2018-12-20 20:50] LABS: HEMATOCRIT 30.9 % (37.0-47.0); HEMOGLOBIN 9.7 g/dl (12.5-16.0)
--- NOTE | 2018-12-20 21:46 | NUR ---
Resting in recliner. Assessment complete. Lungs dimished throughout all berry. Heart sounds normal. Pulses strong throughout. INT right forearm mild blood leakage, flushing without complications. Denies pain. Requested PRN melatonin with schedule trazadone. Denies other needs at this time. Call light in reach.
--- NOTE | 2018-12-20 22:12 | NUR ---
Telemetry called stating 18 beat run of SVT, 9 seconds long. Vital signs stable. No symptoms currently. Will closely monitor.
--- NOTE | 2018-12-21 00:34 | NUR ---
Resting in bed. Denies needs. Call light in reach.
[2018-12-21 04:59] VITALS: BP 125/58; PULSE 81; TEMP 97.2
--- NOTE | 2018-12-21 05:41 | NUR ---
Reports 8/10 left upper back pain. Requested PRN tramadol. Provided to patient. Call light in reach.
--- NOTE | 2018-12-21 05:54 | NUR ---
Patient resting in bed this AM. Requested x1 dose of tramadol this AM for back pain. Otherwise uneventful night. Denies other needs. Call light in reach.
[2018-12-21 06:14] LABS: MEAN CELL VOLUME 97 fl (80.0-100.0); MEAN CORPUSCULAR HGB CONC 31 g/dl (33.0-37.0); MEAN PLATELET VOLUME 8.8 fl (7.4-10.4); PLATELET COUNT 321 K/mm3 (130-400); RED BLOOD COUNT 2.87 M/mm3 (4.10-5.30); REDCELL DISTRIBUTION WIDTH-CV 14.3 % (11.5-14.5)
[2018-12-21 06:17] LABS: HEMATOCRIT 27.8 % (37.0-47.0); HEMOGLOBIN 8.7 g/dl (12.5-16.0); MEAN CORPUSCULAR HEMOGLOBIN 30 pg (27.0-31.0)
[2018-12-21 06:32] LABS: CALCIUM 8.3 mg/dL (8.4-10.2); POTASSIUM 4.2 mmol/L (3.4-5.0)
--- NOTE | 2018-12-21 07:34 | NUR ---
Report given to CYNDEE Riley
[2018-12-21 07:39] LABS: LYMPHOCYTE 19 % (20.0-51.0); METAMYELOCYTE 3 % (0-0); NEUTROPHILS 72 % (42.0-75.2)
[2018-12-21 07:40] LABS: HYPOCHROMIA 2+; PLATELET ESTIMATE NORMAL (NORMAL)
[2018-12-21 07:58] VITALS: BP 141/61; PULSE 94; TEMP 97.8
--- NOTE | 2018-12-21 08:19 | NUR ---
Pt assessment complete. Pt is sitting up in her chair eating breakfast, she is A/O x3. Her breathing is even and unlabored on 2L O2 via NC. Pt reporting dyspnea on exertion, RT at bedside to give breathing treatment. Pt denies any pain. No N/V. POC discussed with patient who verbalizes understanding. Denies needs at this time. Call light within reach. Will continue to monitor.
[2018-12-21 11:23] VITALS: BP 136/60; PULSE 71; TEMP 98.3
[2018-12-21] MEDS ORDERED: MULTAQ400 MG PO (11:35)
[2018-12-21] MEDS ORDERED: ELIQUIS 2.5 PO (11:35)
[2018-12-21] MEDS ORDERED: ULTRAM 50MG TAB50 MG PO (11:49)
[2018-12-21] MEDS ORDERED: NOVOLOG 100U100 U/M1 SQ (11:59)
--- NOTE | 2018-12-21 13:57 | NUR ---
Goldy, at [facility], reports that they can accept the patient for a skilled stay. MILLI informed the patient and attempted to contact the patient's daughter, Breanna, to inform. MILLI left a voicemail. The patient reports that she is in agreeance to transfer to [facility]. MILLI had updated [facility]. The patient is to discharge today, 12/21, to [facility] for a skilled stay. Transportation was scheduled for [id number], via [facility]. MILLI informed the patient and patient's nurse. They were both in agreeance. MILLI presented and explained the IM form to the patient. The patient verbalized understanding, signed, and she was provided a copy. No additional needs at this time.
[2018-12-21 14:33] LABS: MYCOPLASMA IGM ANTIBODIES Negative (Negative)
[2018-12-21 14:44] VITALS: BP 136/60; PULSE 71; TEMP 98.3
--- NOTE | 2018-12-21 16:29 | NUR ---
IV to RFA dc'd. Pt sent with oxygen to [facility], wheeled out at this time.
--- NOTE | 2018-12-21 16:43 | NUR ---
Report given to Nataly COTTER.
== END 2018-12-21 16:44 | DRG 308 ==
LOC: COL.ER 00:51 → MEDICAL 02:48 → ICU 02:48 → MEDICAL 16:50
PROVIDERS: Emergency Medicine; Family Medicine; Internal Medicine Critical Care Medicine; Internal Medicine Pulmonary Disease; Nurse Practitioner Family; Physician Assistant; Student in an Organized Health Care Education/Training Program; ADMIT Family Medicine
DX: I48.91 Unspecified atrial fibrillation (principal); J96.21 Acute and chronic respiratory failure with hypoxia; N17.9 Acute kidney failure, unspecified; J44.1 Chronic obstructive pulmonary disease with (acute) exacerbation; E87.3 Alkalosis; I13.0 Hypertensive heart and chronic kidney disease with heart failure and stage 1 through stage 4 chronic kidney disease, or unspecified chronic kidney disease; E78.5 Hyperlipidemia, unspecified; N18.3 Chronic kidney disease, stage 3 (moderate); I27.20 Pulmonary hypertension, unspecified; Z66 Do not resuscitate; I50.9 Heart failure, unspecified; G47.33 Obstructive sleep apnea (adult) (pediatric); J44.9 Chronic obstructive pulmonary disease, unspecified; K52.831 Collagenous colitis; D50.9 Iron deficiency anemia, unspecified; J98.4 Other disorders of lung; D52.9 Folate deficiency anemia, unspecified; G47.00 Insomnia, unspecified; D51.9 Vitamin B12 deficiency anemia, unspecified; E03.9 Hypothyroidism, unspecified; E83.42 Hypomagnesemia; E87.6 Hypokalemia; M81.0 Age-related osteoporosis without current pathological fracture; F17.210 Nicotine dependence, cigarettes, uncomplicated; R53.81 Other malaise; Z88.0 Allergy status to penicillin; Z88.9 Allergy status to unspecified drugs, medicaments and biological substances; Z79.82 Long term (current) use of aspirin; Z95.2 Presence of prosthetic heart valve
CPT/HCPCS: 99222; 99223-AI; 99232-AI; 99233-AI; 99239; A4216; A9540; A9567; J0692; J0696; J1650; J1815; J1940; J2920; J3370; J3475; J3480; J7030; J7050; J7512; P9016

== ENCOUNTER → 2018-12-29 | Outpatient (CLI) | payer MEDICARE ==
[~2018-12-29] MED LIST changes: +ASPIRIN 81M81 MG/TA2 PO; +ELIQUIS 2.5 PO; +IBU400 MG PO; +LEVOXYL0.025 MG PO; +LOMOTIL 0.025 M1 TAB PO; +MELATONIN 3MG PO; +MULTAQ400 MG PO; +NOVOLOG 100U100 U/M1 SQ; +PRAVACHOL 40MG40 MG PO; +PROBIOTIC-MAJOR PO; +ZEBETA 5MG5 MG PO
[2018-12-29 12:17] LABS: BASO % 0.4 % (0.0-2.0); EOS % 0.2 % (0-4.0); GRAN # 7.8 (1.4-6.5); GRAN % 84.3 % (42.2-75.2); LYMPH # 0.7 (1.2-3.4); LYMPH % 7.3 % (20.0-51.0); MEAN CELL VOLUME 99 fl (80.0-100.0); MEAN CORPUSCULAR HGB CONC 31 g/dl (33.0-37.0); MEAN PLATELET VOLUME 9.2 fl (7.4-10.4); MONO # 0.6 (0.1-0.6); MONO % 6.7 % (1.7-9.3); PLATELET COUNT 255 K/mm3 (130-400); RED BLOOD COUNT 2.94 M/mm3 (4.10-5.30); REDCELL DISTRIBUTION WIDTH-CV 13.5 % (11.5-14.5); RETIC # 0.07 M/mm3 (0.02-0.16); RETIC % 2.5 % (0.5-3.52)
[2018-12-29 12:20] LABS: IRON,SERUM 42 ug/dL (35-150)
[2018-12-29 12:27] LABS: HEMATOCRIT 29.2 % (37.0-47.0); HEMOGLOBIN 9.1 g/dl (12.5-16.0); MEAN CORPUSCULAR HEMOGLOBIN 31 pg (27.0-31.0)
[2018-12-29 12:29] LABS: TOTAL IRON BINDING CAPACITY 252 ug/dL (265-497)
[2018-12-29 12:56] LABS: FERRITIN 144 ng/mL (11-264)
[2018-12-30 00:28] LABS: FOLATE (FOLIC ACID) 12.4 ng/mL (7.0-31.4)
== END ==
LOC: ZCOL.LAB 11:36
PROVIDERS: Family Medicine
DX: D50.0 Iron deficiency anemia secondary to blood loss (chronic) (principal); D52.9 Folate deficiency anemia, unspecified

== ENCOUNTER 2019-03-07 21:02 | Inpatient (IN) | payer MEDICARE, MEDICAID ==
[~2019-03-07] VITALS: Ht 180.3 cm; Wt 84.1 kg
[2019-03-07 22:14] LABS: BASO % 0.3 % (0.0-2.0); EOS # 0.3 (0.0-0.7); EOS % 1.9 % (0-4.0); GRAN # 12.2 (1.4-6.5); GRAN % 79.6 % (42.2-75.2); HEMATOCRIT 32.9 % (37.0-47.0); LYMPH # 1.6 (1.2-3.4); LYMPH % 10.6 % (20.0-51.0); MEAN CELL VOLUME 96 fl (80.0-100.0); MEAN CORPUSCULAR HEMOGLOBIN 29 pg (27.0-31.0); MEAN CORPUSCULAR HGB CONC 30 g/dl (33.0-37.0); MEAN PLATELET VOLUME 9.2 fl (7.4-10.4); MONO % 6.8 % (1.7-9.3); PLATELET COUNT 212 K/mm3 (130-400); RED BLOOD COUNT 3.42 M/mm3 (4.10-5.30); REDCELL DISTRIBUTION WIDTH-CV 13.4 % (11.5-14.5)
[2019-03-07 22:20] LABS: INR 1.3 (0.8-3.0); PROTHROMBIN TIME 14.8 SECONDS (9.7-12.8)
[2019-03-07 22:24] LABS: ALBUMIN 3.7 gm/dL (3.5-5.0); BILIRUBIN,TOTAL 0.3 mg/dL (0.0-1.0); CALCIUM 8.8 mg/dL (8.4-10.2); CREATININE, serum 1.58 (0.52-1.25); POTASSIUM 5.3 mmol/L (3.4-5.0); TOTAL PROTEIN 7.2 gm/dL (6.4-8.2)
[2019-03-07 22:24] LABS: COLLECTION METHOD CATHETER
[2019-03-07 22:39] LABS: MUCOUS Present /lpf; PH 5 (5-8); SQUAMOUS EPITHELIAL None Seen /hpf; URINE APPEARANCE Hazy; URINE BACTERIA Rare /hpf; URINE BILIRUBIN Negative (NEGATIVE); URINE BLOOD 1+ (NEGATIVE); URINE COLOR Yellow; URINE GLUCOSE Negative (NEGATIVE); URINE KETONE Negative (NEGATIVE); URINE LEUKOCYTE ESTERASE Negative (NEGATIVE); URINE NITRATE Negative (NEGATIVE); URINE PROTEIN(semi-quant) Negative (NEGATIVE); URINE UROBILINOGEN Negative (NEGATIVE)
[2019-03-08 03:00] VITALS: BP 152/54; PULSE 73; TEMP 98.2
--- NOTE | 2019-03-08 03:26 | NUR ---
Pt. arrived to the floor via stretcher. Pt. transfered to the bed with 3 assist transfer and slide board. Pt. is alert and oriented X3 but not a good hystorian of medical history at this time. Med rec completed using past history of meds. Pt. reports only has pain when being moved. Pt. denies need for pain meds at this time. Call light within reach.
[2019-03-08 07:34] VITALS: BP 93/43; PULSE 71; TEMP 97.4
[2019-03-08] MEDS ORDERED: ZEBETA 5MG5 MG PO (08:23)
[2019-03-08] MEDS ORDERED: MUCINEX DM 30 M1 TE1 (08:52)
[2019-03-08] MEDS ORDERED: MULTAQ400 MG PO (08:53)
[2019-03-08] MEDS ORDERED: MELATONIN3 M1 PO (08:58)
[2019-03-08] MEDS ORDERED: PLAVIX 75MG TAB75 MG PO (08:59)
[2019-03-08 09:03] VITALS: BP 90/46
[2019-03-08 09:44] LABS: BASO % 0.3 % (0.0-2.0); EOS # 0.1 (0.0-0.7); EOS % 0.9 % (0-4.0); GRAN # 8.7 (1.4-6.5); HEMATOCRIT 28.3 % (37.0-47.0); HEMOGLOBIN 8.7 g/dl (12.5-16.0); LYMPH # 0.7 (1.2-3.4); LYMPH % 6.9 % (20.0-51.0); MEAN CELL VOLUME 97 fl (80.0-100.0); MEAN CORPUSCULAR HEMOGLOBIN 30 pg (27.0-31.0); MEAN CORPUSCULAR HGB CONC 31 g/dl (33.0-37.0); MONO # 0.8 (0.1-0.6); MONO % 7.5 % (1.7-9.3); PLATELET COUNT 158 K/mm3 (130-400); RED BLOOD COUNT 2.93 M/mm3 (4.10-5.30); REDCELL DISTRIBUTION WIDTH-CV 13.3 % (11.5-14.5)
[2019-03-08 10:00] LABS: CALCIUM 8.3 mg/dL (8.4-10.2); CREATININE, serum 1.69 (0.52-1.25); POTASSIUM 4.9 mmol/L (3.4-5.0)
--- NOTE | 2019-03-08 10:53 | NUR ---
Initial visit; Patient thanked Engraver Machine for looking in on her, offering prayer and keeping her in Engraver Machine's prayer. Engraver Machine offered God's blessings to Donna and reassured her spiritual care is always available to her.
[2019-03-08 11:36] VITALS: BP 93/41; PULSE 64; TEMP 97.4
[2019-03-08 16:25] VITALS: BP 112/50; PULSE 66; TEMP 97.9
--- NOTE | 2019-03-08 16:46 | NUR ---
Stripper Machine Operator attended clinical rounds with the team. Discharge plan was discussed with the patient and patient stated she wanted to go to [facility]. Patient currently lives at home alone in [place]. After rounds, MILLI met with the patient and presented Medicare.gov list of nursing home facilities in her area along with the patient choice form. Patient understood the form and provided signature. Patient chose [facility] as first preference. Patient declined selecting a second preference. Patient states she sees Dr. Cobos for primary care. Patient reports having Advance Directives completed. Patient utilizes a wheelchair at home and states she could transfer from her wheelchair to use the bathroom. SW faxed referral to [facility]. MILLI asked patient if she could contact patient's daughter, Breanna but patient stated daughter would be in this afternoon and SW did not need to call. SW to continue to follow.
[2019-03-08 20:00] VITALS: BP 100/51; PULSE 69; TEMP 98
--- NOTE | 2019-03-08 20:20 | NUR ---
Pt. laying in bed at this time. Pt. is A&OX3, assessment complete. INT to rt. wrist patent. Pt. reports pain at a 6 on pain scale, will give pain meds as orders. Pt. denies further needs, call light within reach.
[2019-03-09] VITALS (365 sets, daily range): BP systolic 81–120; BP diastolic 41–59; PULSE 16–89; TEMP 98.1–98.8; O2SAT 74–99
--- NOTE | 2019-03-09 07:09 | NUR ---
REPORT FROM АНДРЕЙ COTTER.
[2019-03-09 07:16] LABS: BASO % 0.3 % (0.0-2.0); EOS # 0.5 (0.0-0.7); EOS % 5.4 % (0-4.0); GRAN # 7.8 (1.4-6.5); LYMPH # 0.9 (1.2-3.4); LYMPH % 8.6 % (20.0-51.0); MEAN CELL VOLUME 97 fl (80.0-100.0); MEAN CORPUSCULAR HGB CONC 30 g/dl (33.0-37.0); MEAN PLATELET VOLUME 10.1 fl (7.4-10.4); MONO # 0.8 (0.1-0.6); MONO % 8.1 % (1.7-9.3); PLATELET COUNT 156 K/mm3 (130-400); RED BLOOD COUNT 2.86 M/mm3 (4.10-5.30); REDCELL DISTRIBUTION WIDTH-CV 13.6 % (11.5-14.5)
[2019-03-09 07:20] LABS: HEMATOCRIT 27.8 % (37.0-47.0); HEMOGLOBIN 8.3 g/dl (12.5-16.0); MEAN CORPUSCULAR HEMOGLOBIN 29 pg (27.0-31.0)
[2019-03-09 07:32] LABS: CALCIUM 8.3 mg/dL (8.4-10.2); CREATININE, serum 2.18 (0.52-1.25); POTASSIUM 4.6 mmol/L (3.4-5.0)
--- NOTE | 2019-03-09 12:45 | NUR ---
PATIENT WAS IN AFIB AND IN AND OUT OF RVR. SEE MAR FOR MEDS GIVEN. PT IS IN AND OUT OF A FIB. PT TO TRANSFER TO ICU BED 3.
--- NOTE | 2019-03-09 14:10 | NUR ---
PATIENT ARRIVED ON UNIT, RECEIVED REPORT FOR CYNDEE COOK AT 1317. PATIENT TRANSFERRED TO ICU BED VIA SLIDER BOARD AND 4 STAFF MEMBERS-TOLERATED WELL BUT VERBAL COMPLAINTS OF PAIN NOTED. IV SL UPON ARRIVE, O2 VIA NC IN PLACE AT 3L-CARE TRANSFERRED TO THIS RN AT THIS TIME
--- NOTE | 2019-03-09 14:30 | NUR ---
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 PATIENT ALSO REPORTS NUMEROUS LOOSE STOOLS FOR SEVERAL WEEKS, CULTURE SENT TO LAB.
--- NOTE | 2019-03-09 14:32 | NUR ---
PATIENT TRANSFERED TO ICU 3. REPORT TO ANDIR COTTER.
--- NOTE | 2019-03-09 16:14 | NUR ---
Behavioral Health Rn faxed updates to [facility]. MORLEY to continue to follow to ensure safe discharge.
--- NOTE | 2019-03-09 17:52 | NUR ---
LAB NOTIFIED THIS RN THAT PATIENT IS CDIFF POSITIVE AT 1703, DR. BERG NOTIFIED AT 1704-SEE NEW ORDERS AND EMAR. PATIENT ALSO NOTIFIED OF RESULTS, AGREEABLE TO PLAN OF CARE. SCDS ALSO PLACED ON PATIENT PER DR. BERG
--- NOTE | 2019-03-09 19:20 | NUR ---
Received report from CYNDEE Zavala, and CYNDEE Whiteside.
--- NOTE | 2019-03-09 19:28 | NUR ---
REPORT GIVEN TO CYNDEE GLEZ. CARE TRANSFERRED AT THIS TIME.
[2019-03-10] VITALS (141 sets, daily range): BP systolic 103–143; BP diastolic 40–72; PULSE 62–85; TEMP 97.8–98.4; O2SAT 78–100
[2019-03-10 07:36] LABS: BASO % 0.4 % (0.0-2.0); EOS # 0.5 (0.0-0.7); EOS % 4.8 % (0-4.0); GRAN # 7.3 (1.4-6.5); GRAN % 75.6 % (42.2-75.2); LYMPH # 0.8 (1.2-3.4); LYMPH % 8.5 % (20.0-51.0); MEAN CELL VOLUME 98 fl (80.0-100.0); MEAN CORPUSCULAR HGB CONC 30 g/dl (33.0-37.0); MEAN PLATELET VOLUME 9.4 fl (7.4-10.4); PLATELET COUNT 147 K/mm3 (130-400); RED BLOOD COUNT 2.76 M/mm3 (4.10-5.30); REDCELL DISTRIBUTION WIDTH-CV 13.8 % (11.5-14.5)
[2019-03-10 07:46] LABS: CALCIUM 8.2 mg/dL (8.4-10.2); CREATININE, serum 1.97 (0.52-1.25); POTASSIUM 4.2 mmol/L (3.4-5.0)
[2019-03-10 07:55] LABS: HEMATOCRIT 26.9 % (37.0-47.0); HEMOGLOBIN 8.1 g/dl (12.5-16.0); MEAN CORPUSCULAR HEMOGLOBIN 29 pg (27.0-31.0)
--- NOTE | 2019-03-10 07:57 | NUR ---
Report given to CYNDEE Trevino.
--- NOTE | 2019-03-10 08:30 | NUR ---
PT A & O X4. PT STATES PAIN HAS BEEN A CONSTANT / PT WOULD LIKE TO WAIT FOR PAIN MEDICATION FOR LATER. PT DENIES ANY OTHER PAINS OR SYMPTOMS. PT ASSISTED IN PREPPING FOR BREAKFAST. PERICARE PROVIDED.
--- NOTE | 2019-03-10 11:21 | NUR ---
REPORT GIVEN TO CYNDEE SAUL ON SURGICAL FLOOR. PT TO GO TO RM 342.
--- NOTE | 2019-03-10 12:35 | NUR ---
PT TO MEDICAL FLOOR RM 310 VIA BED BY PITER TOWNSEND ON 3L OM AND PERSONAL BELONGINGS WITH PT.
--- NOTE | 2019-03-10 16:43 | NUR ---
Infrastructure Architect faxed updates to [facility] and then spoke with Goldy who advised they could accept over the weekend, but would like as much notice as possible. Goldy reports that since patient had a recent stay at [facility] ending on 01/11/19, patient would have a copay of $170.50 per day if discharging to [facility] before Wednesday. On Wednesday, there would be a 60 day reset and patient would not have a copay. SW met with patient to provide update. Patient expresses understanding about copay. SW to continue to follow.
--- NOTE | 2019-03-10 18:00 | NUR ---
Patient has not been feeling well since being transferred to the floor from ICU. She has been refusing pills and food. She stated her pain is mild at this time. She is confused as well. She thinks she waiting for a bus ride to the hospital. No other changes at this time. Call light within reach. Bed alarm on.
--- NOTE | 2019-03-10 21:30 | NUR ---
PATIENT COMPLAINS OF PAIN WITH REPOSITIONING. MEDICATED WITH HS MEDS INCLUDING OXYCODONE 5MG AT THIS TIME. TAKES MEDS WITHOUT PROBLEM. IS ALERT AND ORIENTED X2. WAS CALLING OUT FOR HER DOG. REORIENTED TO PLACE AND TIME. HAS BRUISES TO RIGHT FOREHEAD, RT SHOULDER, LEFT AND RIGHT HIPS FROM FALL AT HOME. INCONTIENT OF BLADDER, LEO CARE PROVIDED. REMAINS ON C-DIFF PRECAUTIONS.
[2019-03-11] VITALS (697 sets, daily range): BP systolic 90–139; BP diastolic 48–61; PULSE 62–79; TEMP 97.5–98.6; O2SAT 61–100
--- NOTE | 2019-03-11 04:58 | NUR ---
Patient hard to rouse, incontinent of bowel and bladder. Jihan cares provided and rouses when turned. LZ=005lg/dl. Answers yes/no question appropriately. VSS. Will monitor for changes.
--- NOTE | 2019-03-11 07:30 | NUR ---
Recieved report from manufacturing shift supervisor. Patient asleep during shift report. O2 via NC at 3L. Bed alarm on, call light within reach.
[2019-03-11 07:52] LABS: BASO # 0.1 (0.0-0.2); BASO % 0.5 % (0.0-2.0); EOS # 0.2 (0.0-0.7); EOS % 2.3 % (0-4.0); GRAN # 8.3 (1.4-6.5); GRAN % 78.3 % (42.2-75.2); LYMPH # 0.8 (1.2-3.4); LYMPH % 7.4 % (20.0-51.0); MEAN CELL VOLUME 100 fl (80.0-100.0); MEAN CORPUSCULAR HGB CONC 29 g/dl (33.0-37.0); MEAN PLATELET VOLUME 9.9 fl (7.4-10.4); MONO # 1.1 (0.1-0.6); MONO % 10.3 % (1.7-9.3); PLATELET COUNT 194 K/mm3 (130-400); RED BLOOD COUNT 2.93 M/mm3 (4.10-5.30)
[2019-03-11 07:54] LABS: HEMATOCRIT 29.3 % (37.0-47.0); HEMOGLOBIN 8.5 g/dl (12.5-16.0); MEAN CORPUSCULAR HEMOGLOBIN 29 pg (27.0-31.0)
[2019-03-11 08:02] LABS: CALCIUM 8.4 mg/dL (8.4-10.2); CREATININE, serum 1.87 (0.52-1.25); POTASSIUM 4.4 mmol/L (3.4-5.0)
--- NOTE | 2019-03-11 10:51 | NUR ---
The patient transferred to ICU. MILLI faxed updates to Alissa at [facility].
[2019-03-11 11:04] LABS: BASO # 0.1 (0.0-0.2); BASO % 0.5 % (0.0-2.0); EOS # 0.1 (0.0-0.7); EOS % 1.2 % (0-4.0); GRAN # 8.8 (1.4-6.5); GRAN % 79.8 % (42.2-75.2); LYMPH # 0.9 (1.2-3.4); LYMPH % 7.8 % (20.0-51.0); MEAN CELL VOLUME 100 fl (80.0-100.0); MEAN CORPUSCULAR HGB CONC 29 g/dl (33.0-37.0); MEAN PLATELET VOLUME 9.7 fl (7.4-10.4); MONO % 9.3 % (1.7-9.3); PLATELET COUNT 196 K/mm3 (130-400); REDCELL DISTRIBUTION WIDTH-CV 13.9 % (11.5-14.5)
[2019-03-11 11:06] LABS: HEMOGLOBIN 8.7 g/dl (12.5-16.0); MEAN CORPUSCULAR HEMOGLOBIN 29 pg (27.0-31.0)
--- NOTE | 2019-03-11 11:15 | NUR ---
Entered patient room to administer scheduled medication, patient is very difficult to rouse. Patient does not rouse to verbal request or to movement, did open eyes and moan when blood sugar was taken, but will not make eye contact or answer questions. MADELIN Zhu entered room to assess patient. Vital signs WNL, BS 129. Recieved order for stat head CT, patient left the floor via bed at approximately 1030.
[2019-03-11 11:16] LABS: ALBUMIN 3.1 gm/dL (3.5-5.0); BILIRUBIN,TOTAL 0.3 mg/dL (0.0-1.0); CALCIUM 8.5 mg/dL (8.4-10.2); CREATININE, serum 1.96 (0.52-1.25); POTASSIUM 4.6 mmol/L (3.4-5.0); TOTAL PROTEIN 6.3 gm/dL (6.4-8.2)
--- NOTE | 2019-03-11 11:26 | NUR ---
Reported from CYNDEE Cabral on 3rd Surgical pt is unresponsive and has been that way since beginning her shift. Pt arrived at this time to ICU 3, monitors attached, SpO2 68% with good plethysmograph waveform. CYNDEE Fuentes and CYNDEE De Souza called into room for assistance. Oxymask applied 15L/min. SpO2 corrected to 95% over 4min. Once SpO2 corrected pt able to state name, , situation, location, place of Stating minor pain in lower back, "right hip feels okay right now". Dried blood noted in oral cavity, oral care provided. Family updated by CYNDEE Cabral MD, MD Gordon and MD Connor have all seen pt. MD Navneet called and notified of: titration of oxygen down has been unscccessful and remains at 15L/min via Oxymask - Blood in the mouth - pt AAOx4 - Keppra started - IVFluid continued - critical troponin I 0.046 and that all other vital signs stable.
[2019-03-11 11:32] LABS: PROLACTIN 20.9 ng/mL (3.0-18.6)
[2019-03-11 12:14] LABS: TROPONIN-I 0.046 ng/mL (0.000-0.035)
[2019-03-11 13:06] LABS: ARTERIAL BLD GAS O2 SATURATION 97.1 % (92-100); ARTERIAL BLD GAS TCO2 CT 27.4; ARTERIAL BLOOD GAS BASE EXCESS -5.6 (-2-2); ARTERIAL BLOOD GAS HCO3 24.9 meq/L (22-26); ARTERIAL BLOOD GAS PO2 106.1 mmHg (80-100)
[2019-03-11 13:07] LABS: ARTERIAL BLOOD GAS PCO2 82.6 mmHg (35-45)
--- NOTE | 2019-03-11 13:15 | NUR ---
MD Navneet notified regarding ABG results - TORB recieved - MD Gordon on unit and notified of new consultation from MD Navneet.
--- NOTE | 2019-03-11 14:45 | NUR ---
MD Navneet and MD Gordon notified of repeat ABG after 1-1.5hrs on BiPap. Next of Kin (Breanna) called with no answer-voice message left with return number to ICU.
[2019-03-11 14:47] LABS: ARTERIAL BLD GAS TCO2 CT 26.2; ARTERIAL BLOOD GAS BASE EXCESS -5.9 (-2-2); ARTERIAL BLOOD GAS HCO3 23.9 meq/L (22-26); ARTERIAL BLOOD GAS PO2 87.7 mmHg (80-100)
[2019-03-11 14:48] LABS: ARTERIAL BLOOD GAS PCO2 74.3 mmHg (35-45); ARTERIAL BLOOD GAS pH 7.13 (7.35-7.45)
--- NOTE | 2019-03-11 14:57 | NUR ---
Radiology called for 1view CXR order imputed earlier, Donna,RT was on break and will be up as soon as possible
--- NOTE | 2019-03-11 17:30 | NUR ---
[place] pt's mother returned call - MD Navneet and myself spoke with Breanna - she and her brother both agree to intubation and mechanical ventilation but no CPR. Telephone consent obtained at this time 1743 CYNDEE Fuentes, CYNDEE De Souza, MD Gordon, Ana MariaRT and myself in room. Time out completed for Intubation 174 Ambu Bag used by MD Gordon 174Propofol 50mg administered 1747 7.5 ETT 23cm @teeth placed. Color change confirmed placement 1748 10mg Vecuronium administered 1750 ETT attached to ventilator TV:450, RR22, PEEP5, FiO2:50% 1753 Hypotension noted, 1L fluid bolus ordered by MD Gordon 1755 Restraints applied 1756 Time out completed for central line placement 1823 OG tube inserted 55cm 1855 Propofol initiated at starting dose, Fentanyl on hold. RASS-3 1900 OG tube advanced to 60cm per MD Gordon 192 Bedside report given to CYNDEE Keith
--- NOTE | 2019-03-11 18:12 | NUR ---
PT INTUBATED BY DR BOWLING WITH SIZE 7.5 ETT SECURED TO 23CM @ LIPS. +BLBS EQUAL. CAPNOGRAPHY + COLOR CHANGE YELLOW. PLACED ON VENT SETTINGS PER DR BOWLING. AWAITING CHEST XRAY FOR ETT PLACEMENT. VSS.
--- NOTE | 2019-03-11 19:29 | NUR ---
Bedside report received from CYNDEE Schmitt. All lines, tubes, and medications confirmed. Transfer of care at this time.
--- NOTE | 2019-03-11 20:00 | NUR ---
Patient resting on the vent, she is drowsy but arousable. Not currently following commands. Pupils are sluggish to react. Assessment complete. Lungs are coarse in all berry with coarse crackles in the bases as well as bases being diminished. HR and rhythm are regular with normal S1 and S2 heard, she is bradycardic. Bowel sounds active x4. Pulses palpable in all extremities. OG tube placement confirmed by auscultation and aspiration of gastric contents. ET tube remains in place. Patient is having scant amounts of sputum when suctioned. Vitals are stable since fluid bolus. No further needs at this time. Will continue to monitor.
[2019-03-11 20:56] LABS: ARTERIAL BLD GAS TCO2 CT 17.2; ARTERIAL BLOOD GAS BASE EXCESS -8.6 (-2-2); ARTERIAL BLOOD GAS HCO3 16.3 meq/L (22-26); ARTERIAL BLOOD GAS PCO2 31.1 mmHg (35-45); ARTERIAL BLOOD GAS PO2 158.3 mmHg (80-100); ARTERIAL BLOOD GAS pH 7.34 (7.35-7.45)
--- NOTE | 2019-03-11 22:07 | NUR ---
AT 2128 [facility] WAS CALLED DUE TO THE PTS HIGH PO2 ON THE ABG RESULTS. THEREFORE I TURNED THE FI02 FROM 50% TO 40% NOTIFYING [facility].
[2019-03-12] VITALS (929 sets, daily range): BP systolic 78–190; BP diastolic 42–70; PULSE 55–80; TEMP 97.9–98.9; O2SAT 95–100
--- NOTE | 2019-03-12 | NUR ---
Patient is now awake on the vent when any kind of stimulous is present in the room. Patient responds appropriately to yes and no questions and is following commands. Patient is visibly uncomfortable and is physically shaking. Patient nods her head yes when asked if she is in pain. Attempted to turn up propofol and fentanyl, but BP would not tolerate. Patient has had a large BM, cleaned with cleansing cloths and new bedding provided. Assessment complete. Lungs remain the same as previous exam and as well as HR. Bowel sounds are active x4. All other vitals remain stable with exception of hypotension. Will continue to monitor. Call light within reach.
[2019-03-12 01:43] LABS: HEMATOCRIT 23.8 % (37.0-47.0); HEMOGLOBIN 7.2 g/dl (12.5-16.0)
[2019-03-12 01:53] LABS: ALBUMIN 2.5 gm/dL (3.5-5.0); CALCIUM 7.9 mg/dL (8.4-10.2); CREATININE, serum 2.01 (0.52-1.25); MAGNESIUM 1.8 mg/dL (1.6-2.3); POTASSIUM 4.2 mmol/L (3.4-5.0)
[2019-03-12 02:07] LABS: TROPONIN-I 0.043 ng/mL (0.000-0.035)
--- NOTE | 2019-03-12 04:00 | NUR ---
Patient is hyperalert on the vent and restless in bed. Patient continues to respond appropriately to questions and follows commands. Patient tries to mouth something to this nurse, but is unable to understand. Patient given speech board to try to assist, but she is unable to find or spell what she is looking for. Assessment complete with no changes from previous exam. Vitals remain the same as patient is still hypotensive despite fluid boluses. Will continue to monitor.
--- NOTE | 2019-03-12 05:00 | NUR ---
Sedation vacation not performed. Patient is completely alert, following commands, and is partially oriented. Patient is uncomfortable on current drip rates and is visibly shaking. Pressures have not tolerated turning up the propofol or fentanyl.
[2019-03-12 05:24] LABS: ARTERIAL BLD GAS O2 SATURATION 97.2 % (92-100); ARTERIAL BLD GAS TCO2 CT 15.4; ARTERIAL BLOOD GAS BASE EXCESS -11.5 (-2-2); ARTERIAL BLOOD GAS HCO3 14.4 meq/L (22-26); ARTERIAL BLOOD GAS PCO2 32.1 mmHg (35-45); ARTERIAL BLOOD GAS PO2 101.8 mmHg (80-100); ARTERIAL BLOOD GAS pH 7.27 (7.35-7.45)
--- NOTE | 2019-03-12 05:30 | NUR ---
Patient is quite agitated at this time. And has tried multiple attempts to pull out the ET tube including biting at the tube trying to force it out of her mouth and trying to grab at it. Patient's restraints are tied well, Repositioned patient for comfort and easier restriction of limbs from tubes. Will continue to monitor.
--- NOTE | 2019-03-12 05:40 | NUR ---
WEANING TRIAL IS NOT BEING DONE DUE TO PT NOT BEING INTUBATED FOR OVER 24 HOURS. PT IS ON DOCUMENTED SETTINGS WITH NO DISTRESS NOTED. WILL CONTINUE TO MONITOR AND ASSESS AND LET DAY SHIFT RT KNOW OF NOT HAVING A WEANING TRIAL BEING DONE.
--- NOTE | 2019-03-12 06:30 | NUR ---
Called and spoke with Cristal at [facility]. Let her know I have been unable to give the unit of blood due to patient having an antibody that has to be tested for. SO the second amp of bicarb has not been given either. Patient's pressures are still low. She states she will pass this along to Dr. Chavez.
--- NOTE | 2019-03-12 07:30 | NUR ---
Bedside report given to CYNDEE Schmitt. All lines, tubes and medications confirmed. Transfer of care.
[2019-03-12 11:07] LABS: MEAN CELL VOLUME 96 fl (80.0-100.0); MEAN CORPUSCULAR HGB CONC 30 g/dl (33.0-37.0); MEAN PLATELET VOLUME 9.8 fl (7.4-10.4); PLATELET COUNT 185 K/mm3 (130-400); RED BLOOD COUNT 2.73 M/mm3 (4.10-5.30); REDCELL DISTRIBUTION WIDTH-CV 14.3 % (11.5-14.5)
[2019-03-12 11:11] LABS: HEMATOCRIT 26.3 % (37.0-47.0); MEAN CORPUSCULAR HEMOGLOBIN 29 pg (27.0-31.0)
[2019-03-12 11:14] LABS: ALBUMIN 2.4 gm/dL (3.5-5.0); BILIRUBIN,TOTAL 0.3 mg/dL (0.0-1.0); CALCIUM 8.5 mg/dL (8.4-10.2); CREATININE, serum 2.08 (0.52-1.25); MAGNESIUM 1.9 mg/dL (1.6-2.3); PHOSPHOROUS 4.9 mg/dL (2.5-4.5); TOTAL PROTEIN 5.1 gm/dL (6.4-8.2)
[2019-03-12 11:23] LABS: TROPONIN-I 0.032 ng/mL (0.000-0.035)
[2019-03-12 13:31] LABS: BAND 10 % (0-10); EOSINOPHIL 3 % (0-4); LYMPHOCYTE 9 % (20.0-51.0); NEUTROPHILS 77 % (42.0-75.2); PLATELET ESTIMATE NORMAL (NORMAL)
[2019-03-12 13:32] LABS: BURR CELLS 2+
--- NOTE | 2019-03-12 17:19 | NUR ---
Sedation Vacation not required - pt able to open eyes, lift head, nonverbal communication using head movements and follow commands at current sedation dose
--- NOTE | 2019-03-12 19:00 | NUR ---
RECEIVED REPORT KAY NOLASCO RN. PT RESTING EASILY ON VENT SETTINGS: FIO2 40%, PEEP 5, TV 500, RATE 22. OG CLAMPED AND AT 60CM. ETT 7.5 AT 23 AT THE TEETH. FC PATENT AND DRAINING TO GRAVITY. BSWR IN PLACE. PT AROUSES EASILY TO VERBAL STIMULI AND LOOKS AT NURSE BRIEFLY THEN FALLS BACK TO SLEEP AT THIS TIME.
[2019-03-12 19:11] LABS: CREATININE, serum 2.04 (0.52-1.25); SODIUM 142 mmol/L (137-145)
--- NOTE | 2019-03-12 20:00 | NUR ---
CVP NOTED TO BE 7.
[2019-03-12 20:33] LABS: ARTERIAL BLD GAS O2 SATURATION 98.3 % (92-100); ARTERIAL BLOOD GAS BASE EXCESS -6.6 (-2-2); ARTERIAL BLOOD GAS HCO3 16.3 meq/L (22-26); ARTERIAL BLOOD GAS PCO2 24.5 mmHg (35-45); ARTERIAL BLOOD GAS PO2 122.3 mmHg (80-100); ARTERIAL BLOOD GAS pH 7.44 (7.35-7.45)
--- NOTE | 2019-03-12 20:55 | NUR ---
RT AT BEDSIDE MAKING ADJUSTMENTS TO VENT SETTING BASED OFF ABG AND E CARE ORDERS, FIO2 TO 35%.
--- NOTE | 2019-03-12 21:17 | NUR ---
[facility] WAS CALLED DUE TO PTS HIGH PO2. AGREED TO DECREASE PTS FI02 TO 35% AND WILL CONTINUE TO MONITOR AND ASSESS PT. WILL ASSESS PTS LEVEL OF 02 IN THE MORNING WITH THE 0500 ABG.
[2019-03-13] VITALS (490 sets, daily range): BP systolic 123–165; BP diastolic 64–102; PULSE 74–92; TEMP 97.9–99.9; O2SAT 97–100
--- NOTE | 2019-03-13 | NUR ---
CVP NOTED TO BE 9. PT TOLERATES REPOSITIONING WITHOUT DIFFICULTIES. FC PATENT, LOW UO, PER REPORT MD AWARE OF UO. OGT CLAMPED, RESIDUAL NOTED TO BE 60, GREEN COLORED. PT TOLERATING VENT SETTINGS, VSS.
--- NOTE | 2019-03-13 04:00 | NUR ---
CVP 8. ORAL CARE PERFORMED BY RT AT THIS TIME. PT APPEARS TO GET A LITTLE AGGITATED.
[2019-03-13 05:00] LABS: ARTERIAL BLD GAS O2 SATURATION 98.3 % (92-100); ARTERIAL BLD GAS TCO2 CT 16.5; ARTERIAL BLOOD GAS BASE EXCESS -7.8 (-2-2); ARTERIAL BLOOD GAS HCO3 15.8 meq/L (22-26); ARTERIAL BLOOD GAS PCO2 25.6 mmHg (35-45); ARTERIAL BLOOD GAS pH 7.41 (7.35-7.45)
[2019-03-13 05:01] LABS: ARTERIAL BLOOD GAS PO2 127.4 mmHg (80-100)
--- NOTE | 2019-03-13 05:08 | NUR ---
RT AT BEDSIDE FOR SEDATION VACATION AND TO ATTEMPT WEANING TRAIL. VENT SETTINGS CHANGED TO CPAP MODE 5/5 WITH 30% FIO2. PT NODS HEAD APPROPRIATELY AND LISTENS TO NURSE TO REMAIN CALM FOR WEANING TRIAL.
--- NOTE | 2019-03-13 05:50 | NUR ---
PT ON WEANING TRIAL CODY WELL WITH NO DISTRESS NOTED AT THIS TIME. PT IS AWAKE AND CODY WEANING TRIAL WELL, 5 OVER 5 ON 30% FI02. [facility] FI02 BEING TITRATED DOWN FROM 35% TO 30% DUE TO HIGH PO2 OF MORNING ABG. WILL CONTINUE TO MONITOR AND ASSESS PT WILL LET DAY SHIFT RT KNOW OF WEANING TRIAL BEING IN PROGRESS.
[2019-03-13 05:51] LABS: GRAN # 5.1 (1.4-6.5); GRAN % 89.5 % (42.2-75.2); LYMPH # 0.3 (1.2-3.4); LYMPH % 4.4 % (20.0-51.0); MEAN CORPUSCULAR HGB CONC 33 g/dl (33.0-37.0); MEAN PLATELET VOLUME 9.8 fl (7.4-10.4); MONO # 0.3 (0.1-0.6); MONO % 4.9 % (1.7-9.3); PLATELET COUNT 210 K/mm3 (130-400); RED BLOOD COUNT 2.86 M/mm3 (4.10-5.30); REDCELL DISTRIBUTION WIDTH-CV 14.7 % (11.5-14.5)
[2019-03-13 05:52] LABS: HEMOGLOBIN 8.4 g/dl (12.5-16.0); MEAN CORPUSCULAR HEMOGLOBIN 29 pg (27.0-31.0)
[2019-03-13 05:53] LABS: HEMATOCRIT 25.6 % (37.0-47.0); MEAN CELL VOLUME 90 fl (80.0-100.0)
[2019-03-13 06:05] LABS: CALCIUM 8.4 mg/dL (8.4-10.2); CREATININE, serum 2.23 (0.52-1.25); MAGNESIUM 1.8 mg/dL (1.6-2.3); PHOSPHOROUS 4.5 mg/dL (2.5-4.5); POTASSIUM 3.6 mmol/L (3.4-5.0)
--- NOTE | 2019-03-13 06:17 | NUR ---
PT REMAINS ON SEDATION VACATION WITH WEANING TRIAL OF CPAP. PT TOLERATING WELL. PT AWAKE AND NODS HEAD YES AND NO TO SIMPLE QUESTIONS AND FOLLOWS COMMANDS. PT APPEARS TO UNDERSTAND NURSE INSTRUCTIONS TO REMAIN CALM AND KEEP WORKING ON HER BREATHING TO SEE IF WE CAN GET THE TUBE OUT. WHEN ASKED PT IF SHE FEELS LIKE SHE IS GETTING ENOUGH AIR, PT NODS HEAD YES. CVP NOTED TO BE 11. LOW UO REMAINS. HR 84, TEMP 98.2, RR 16, POX 95%, BP 137/62.
[2019-03-13 07:50] LABS: ARTERIAL BLD GAS O2 SATURATION 95.1 % (92-100); ARTERIAL BLD GAS TCO2 CT 19.5; ARTERIAL BLOOD GAS BASE EXCESS -8.5 (-2-2); ARTERIAL BLOOD GAS HCO3 18.2 meq/L (22-26); ARTERIAL BLOOD GAS PCO2 42.4 mmHg (35-45); ARTERIAL BLOOD GAS PO2 85.8 mmHg (80-100); ARTERIAL BLOOD GAS pH 7.25 (7.35-7.45)
--- NOTE | 2019-03-13 08:00 | NUR ---
PT IS ALERT THIS AM AND NODDING YES AND NO QUESTIONS. WHEN ASKED FOR PT TO SQUEEZE MY HANDS PT DOES SO, BUT WHEN ASKING TO LET GO SHE DOES DOES NOT. PT DOES MOVE BILATERAL FEET. PT NODS NO TO PAIN. PTS RIGHT WRIST IV D/C; APPEARANCE WAS NORMAL, BUT HAD BEEN IN PLACE ACCORDING TO CHARTS NEARLY ONE WEEK AND PT HAS TRIPLE LUMEN RIGHT IJ. PT URINATING AROUND JOSEPH CATHETER THIS AM WHEN URINE POOLING BETWEEN LEGS. PT WAS CLEANED UP AND NEW PADS AND SHEETS PLACED UNDERNEATH.
--- NOTE | 2019-03-13 11:23 | NUR ---
FINANCIAL ANALYSIS CONSULTANT student faxed updates to Goldy at [facility]. security services manager will continue to follow.
--- NOTE | 2019-03-13 16:00 | NUR ---
PT'S EDEMA IN LEGS AND HADS IS DECREASED FOLLOWING DIURETICS. PT IS STILL ALERT AND FOLLOWING SIMPLE COMMANDS.
--- NOTE | 2019-03-13 19:20 | NUR ---
Received report from CYNDEE Trevino.
--- NOTE | 2019-03-13 21:08 | NUR ---
Patient is resting quietly with eyes open during 1999 assessment. Patient is able to follow commands and open eyes spontaneously. Patient nods her head when asked if in pain. Propofol titrated to 10 mcg/kg/min at 2007 to promote comfort and rest. At this time patient is resting quietly with eyes closed. Will continue to monitor.
[2019-03-14] VITALS (1292 sets, daily range): BP systolic 126–167; BP diastolic 64–113; PULSE 68–88; TEMP 97.6–98.5; O2SAT 82–100
--- NOTE | 2019-03-14 00:05 | NUR ---
Tube feeds increased 15mL/hour to 30mL/hour per physician orders at this time.
[2019-03-14 04:56] LABS: MEAN CELL VOLUME 89 fl (80.0-100.0); MEAN CORPUSCULAR HGB CONC 33 g/dl (33.0-37.0); MEAN PLATELET VOLUME 9.5 fl (7.4-10.4); PLATELET COUNT 215 K/mm3 (130-400); RED BLOOD COUNT 2.99 M/mm3 (4.10-5.30); REDCELL DISTRIBUTION WIDTH-CV 14.7 % (11.5-14.5)
[2019-03-14 05:00] LABS: HEMATOCRIT 26.7 % (37.0-47.0); HEMOGLOBIN 8.7 g/dl (12.5-16.0); MEAN CORPUSCULAR HEMOGLOBIN 29 pg (27.0-31.0)
[2019-03-14 05:11] LABS: CALCIUM 7.9 mg/dL (8.4-10.2); CREATININE, serum 2.31 (0.52-1.25); MAGNESIUM 1.7 mg/dL (1.6-2.3); PHOSPHOROUS 4.3 mg/dL (2.5-4.5); POTASSIUM 3.8 mmol/L (3.4-5.0)
[2019-03-14 05:13] LABS: ARTERIAL BLD GAS O2 SATURATION 96.4 % (92-100); ARTERIAL BLOOD GAS BASE EXCESS -5.5 (-2-2); ARTERIAL BLOOD GAS HCO3 18.1 meq/L (22-26); ARTERIAL BLOOD GAS PCO2 28.5 mmHg (35-45); ARTERIAL BLOOD GAS PO2 86.8 mmHg (80-100); ARTERIAL BLOOD GAS pH 7.42 (7.35-7.45)
[2019-03-14 05:28] LABS: BAND 7 % (0-10); LYMPHOCYTE 3 % (20.0-51.0); METAMYELOCYTE 1 % (0-0); NEUTROPHILS 85 % (42.0-75.2); NUCLEATED RED BLOOD CELL 2 (0-6); PLATELET ESTIMATE NORMAL (NORMAL)
--- NOTE | 2019-03-14 06:49 | NUR ---
Patient's sedation vacation initiated at 0430. Propofol titrated down 5 mcg/kg/min to a dose of 5 mcg/kg/min or 2mL/hour. Patient tolerated well; initially denying pain and following commands. Propofol was titrated back to 10 mcg/kg/min at 0450 with increased restlessness. Patient began to attempt to speak to staff. Staff was unable to determine what patient was asking for, despite cueing patient, using the letter board, and offering the patient a pen and paper. Patient eventually indicated that pain was present, and fentanyl was titrated to 100 mcg/hr at 0507. However, patient continued to become more restless yet, evidenced by pulling at her restraints and continuing to attempt to speak, and propofol was steadily titrated to a dose of 25 mcg/kg/min at 0626. BPs during this time were set to circulate every five minutes due to the patient's history of softening blood pressures with sedation. BPs remained stable. At this time, patient is more relaxed, although is still alert and with eyes open in bed. Will continue to monitor.
--- NOTE | 2019-03-14 07:00 | NUR ---
Report given to CYNDEE Trevino.
--- NOTE | 2019-03-14 08:00 | NUR ---
PT ALERT THIS AM IN BED. PT TRYING TO SPEAK. PT IS CURRENTLY ON SEDATION VACATION AND TRIALING ON CPAP MODE (ON VENT).
[2019-03-14 09:20] LABS: ARTERIAL BLD GAS TCO2 CT 21.6; ARTERIAL BLOOD GAS BASE EXCESS -4.8 (-2-2); ARTERIAL BLOOD GAS HCO3 20.4 meq/L (22-26); ARTERIAL BLOOD GAS PCO2 38.6 mmHg (35-45); ARTERIAL BLOOD GAS PO2 105.3 mmHg (80-100); ARTERIAL BLOOD GAS pH 7.34 (7.35-7.45)
--- NOTE | 2019-03-14 11:20 | NUR ---
IT PROGRAM ENGAGEMENT DIRECTOR student faxed updates to Goldy at . Goldy reports that the patient's co-pay will still be 170.50 a day. assurance services manager health care will continue to follow.
--- NOTE | 2019-03-14 19:00 | NUR ---
RECEIVED REPORT FROM CYNDEE HDZ. PT RESTING AND IS EASILY AROUSABLE. BSWR IN PLACE. PT APPEARS TO BE CALM. PROPOFOL AT 15MCG/KG/MIN AND FENTANYL AT 50MCG/HR. VETN SETTINGS: TV 500, FIO2 30%, PEEP 5, RATE 22. VSS. OG AT 60CM WITH TUBE FEEDINGS INFUSING AT 43ML/HR. FC PATENT AND DRAINING TO GRAVITY.
--- NOTE | 2019-03-14 19:15 | NUR ---
BEDSIDE REPORT GIVEN TO CYNDEE MCNALLY.
[2019-03-15] VITALS (961 sets, daily range): BP systolic 131–157; BP diastolic 63–80; PULSE 62–88; TEMP 97.8–99; O2SAT 16–100
--- NOTE | 2019-03-15 05:09 | NUR ---
RT NOTIFIED RN OF ABG RESULTS AND CAN START SEDATION VACATION FOR POTENTIAL WEANING TRIAL. AWAITING E CARE ORDERS.
[2019-03-15 05:10] LABS: ARTERIAL BLD GAS TCO2 CT 21.7; ARTERIAL BLOOD GAS BASE EXCESS -0.1 (-2-2); ARTERIAL BLOOD GAS HCO3 21.1 meq/L (22-26)
[2019-03-15 05:12] LABS: ARTERIAL BLOOD GAS PCO2 22.1 mmHg (35-45)
--- NOTE | 2019-03-15 05:24 | NUR ---
RT AT BEDSIDE CHANGING VENT SETTINGS TO CPAP 5/5 WITH FIO2 OF 30%. PT NODS HEAD IN UNDERSTANDING OF WEANING TRIAL. EYES WIDE OPEN AND STARING AROUND THE ROOM.
[2019-03-15 05:40] LABS: GRAN # 5.8 (1.4-6.5); GRAN % 88.3 % (42.2-75.2); LYMPH # 0.2 (1.2-3.4); LYMPH % 3.2 % (20.0-51.0); MEAN CELL VOLUME 90 fl (80.0-100.0); MEAN CORPUSCULAR HGB CONC 33 g/dl (33.0-37.0); MEAN PLATELET VOLUME 9.9 fl (7.4-10.4); MONO # 0.5 (0.1-0.6); MONO % 7.4 % (1.7-9.3); PLATELET COUNT 226 K/mm3 (130-400); RED BLOOD COUNT 2.93 M/mm3 (4.10-5.30); REDCELL DISTRIBUTION WIDTH-CV 14.5 % (11.5-14.5)
[2019-03-15 05:43] LABS: HEMATOCRIT 26.5 % (37.0-47.0); HEMOGLOBIN 8.6 g/dl (12.5-16.0); MEAN CORPUSCULAR HEMOGLOBIN 29 pg (27.0-31.0)
[2019-03-15 07:53] LABS: CREATININE, serum 1.95 (0.52-1.25); POTASSIUM 3.2 mmol/L (3.4-5.0)
[2019-03-15 09:42] LABS: ARTERIAL BLD GAS O2 SATURATION 96.1 % (92-100); ARTERIAL BLD GAS TCO2 CT 25.5; ARTERIAL BLOOD GAS BASE EXCESS -0.5 (-2-2); ARTERIAL BLOOD GAS HCO3 24.3 meq/L (22-26); ARTERIAL BLOOD GAS PCO2 40.6 mmHg (35-45); ARTERIAL BLOOD GAS PO2 92.1 mmHg (80-100)
--- NOTE | 2019-03-15 09:52 | NUR ---
STATEMENT CLERK student faxed updates to Goldy at . Social service will continue to monitor.
--- NOTE | 2019-03-15 09:57 | NUR ---
pPTEXTUBATED PER DR BOWLING. PLACED 3 LPM OXYMK 99%. NO COMPLCATIONS. SAMIRA RN AND NADIR RN BESIDE
--- NOTE | 2019-03-15 09:57 | NUR ---
Dr Leyva notified of ABG results, pt mental status, ability to follow commands, equal strong and communicating desire for tube removal. Orders received to extubate. RT notified and patient extubated to 3L Oxymask. Tolerated procedure well, and requesting to eat.
--- NOTE | 2019-03-15 11:55 | NUR ---
Follow-up visit; Patient responded to Wholesale Account Manager who offered comfort, encouragement and prayer. Wholesale Account Manager will follow up with Donna.
[2019-03-15 11:58] LABS: ARTERIAL BLD GAS TCO2 CT 26.8; ARTERIAL BLOOD GAS BASE EXCESS 0.4 (-2-2); ARTERIAL BLOOD GAS HCO3 25.4 meq/L (22-26); ARTERIAL BLOOD GAS pH 7.39 (7.35-7.45)
--- NOTE | 2019-03-15 12:19 | NUR ---
Able to swallow whole pills with thin liquids without issue. Pulm updated with f/u abg. Decreased O2 to 2L
--- NOTE | 2019-03-15 19:00 | NUR ---
RECEIVED REPORT FROM CYNDEE AQUINO. PT SITTING UP IN BED WATCHING TV AND EATING A POPSCICLE. CALL LIGHT WITHIN REACH. FC PATENT AND DRAINING TO GRAVITY. VSS. PT ON 2L VIA [place].
[2019-03-15 20:15] LABS: MAGNESIUM 1.9 mg/dL (1.6-2.3); POTASSIUM 3.6 mmol/L (3.4-5.0)
[2019-03-16] VITALS (341 sets, daily range): BP systolic 122–157; BP diastolic 46–72; PULSE 49–69; TEMP 97.4–98.4; O2SAT 92–100
[2019-03-16 05:59] LABS: MEAN CELL VOLUME 93 fl (80.0-100.0); MEAN CORPUSCULAR HGB CONC 31 g/dl (33.0-37.0); MEAN PLATELET VOLUME 9.8 fl (7.4-10.4); PLATELET COUNT 236 K/mm3 (130-400); RED BLOOD COUNT 2.85 M/mm3 (4.10-5.30); REDCELL DISTRIBUTION WIDTH-CV 14.4 % (11.5-14.5)
[2019-03-16 06:00] LABS: HEMATOCRIT 26.6 % (37.0-47.0); HEMOGLOBIN 8.3 g/dl (12.5-16.0); MEAN CORPUSCULAR HEMOGLOBIN 29 pg (27.0-31.0)
[2019-03-16 06:05] LABS: CALCIUM 7.9 mg/dL (8.4-10.2); CREATININE, serum 1.57 (0.52-1.25); POTASSIUM 4.1 mmol/L (3.4-5.0)
[2019-03-16 07:24] LABS: BAND 10 % (0-10); LYMPHOCYTE 7 % (20.0-51.0); METAMYELOCYTE 2 % (0-0); NEUTROPHILS 80 % (42.0-75.2); PLATELET ESTIMATE NORMAL (NORMAL)
--- NOTE | 2019-03-16 07:30 | NUR ---
Bedside report received, care assumed at this time. Patient alert and oriented, pleasant and cooperative as well. Booker draining to gravity, heel protectors in place. Patient encouraged to call for assistance.
--- NOTE | 2019-03-16 10:00 | NUR ---
Report called to [facility] for transfer
--- NOTE | 2019-03-16 11:00 | NUR ---
PT ADMITTED TO MEDICAL FLOOR. ASSISTED TO GET PT COMFORTABLE AND AND SITUATED AFTER ARRIVING TO THE FLOOR. JOSEPH IN PLACE AND URINE NOTED IN TUBING. SEIZURE PADS IN PLACE. NO ISSUES VOICED AT THIS TIME.
--- NOTE | 2019-03-16 11:17 | NUR ---
The patient is to tranfer to medical floor.
--- NOTE | 2019-03-16 11:21 | NUR ---
ORDER ENTRY REPRESENTATIVE student faxed updates to Goldy at . ORDER ENTRY REPRESENTATIVE student attempted to contact the patient's daughter, Breanna to update on the patient's move to medical floor, left message. protective services officer will continue to follow.
--- NOTE | 2019-03-16 11:30 | NUR ---
MRI UP TO TAKE PT TO MRI. PT REFUSED AND STATED THAT THEY SHOULD HAVE GOTTEN ONE BEFORE NOW IF THEY FELT IT WAS NESSICARY.
--- NOTE | 2019-03-16 14:00 | NUR ---
THIS NURSE ASSISTED EATING LUNCH. PT VOICED TO NURSE THAT SHE CHANGED HER MIND AND STILL WANTED THE MRI, THAT IT MITE FIND OUT WHAT WAS WRONG WITH HER MIND. THIS NURSE CALLED INFRASTRUCTURE DESIGN ENGINEER AND INFORMED THEM, THEY STATED THAT THEY COULD GET HER TOMORROW, INFORMED THEM THAT PT STATED TOMORROW WOULD BE FINE. THIS NURSE PUT BACK MRI ORDER IN.
--- NOTE | 2019-03-16 16:22 | NUR ---
The patient's daughter, Breanna contacted SW. Breanna states she will visit the patient 03/17. check services clerk will continue to follow.
--- NOTE | 2019-03-16 21:22 | NUR ---
Lying in bed with eyes open watching TV. Denies pain or nausea. Asks what her oxygen was on at, explain they have her on half a liter. Patient says that she is normally on 2.5-3 liters and requests to have oxygen increased to 2.5 liters. O2 increased at this time and respiratory aware. Denies pain, has soreness. Left upper extremity with 2+ edema noted. Patient says that she has soreness at elbow level in both arms. Bruising noted to right temporal area. Right IJ with dressing CDI. Booker patent draining clear yellow urine. Patient denies further needs at this time.
--- NOTE | 2019-03-16 21:55 | NUR ---
Patient requests to take Roxicodone and Tylenol prior to going to sleep to help with her aches and pains. Administered as prescribed. Patient also requests to take the Melatonin to help her sleep. Administered as prescribed. Repositioned in the bed. Patient denies further needs at this time.
--- NOTE | 2019-03-16 23:45 | NUR ---
Lying in bed with eyes closed. Eyes open when name called out. Denies pain. Booker continue to drain clear yellow urine. Catheter care provided. Pillow placed under legs per patient request. Patient denies further needs and explains that she wants to try to get some sleep.
--- NOTE | 2019-03-17 02:15 | NUR ---
Lying in bed with eyes closed. HOB elevated approximately 45 degrees. Respirations even and unlabored. Patient open eyes when name called out. Denies any pain or concerns. Patient voices that she would like to go back to sleep at this time. Denies further needs.
[2019-03-17 04:08] VITALS: BP 120/50; PULSE 50; TEMP 97.4
--- NOTE | 2019-03-17 04:16 | NUR ---
Lying in bed with eyes closed. Opens eyes when name called out. Denies pain. Says that she feels good, just wants to get sleep. Respirations even and unlabored. On 2.5L/NC. Denies SOA. Explains that she would like to go back to sleep and denies further needs.
--- NOTE | 2019-03-17 05:33 | NUR ---
Lying in bed with eyes closed. Eyes open when name called out. Alert and oriented. Denies pain. Says that she is just tired and wore out and wants to sleep. Hand business asst strong and equal. PERRLA. Patient denies further needs at this time.
[2019-03-17 06:00] LABS: MEAN CELL VOLUME 95 fl (80.0-100.0); MEAN CORPUSCULAR HGB CONC 30 g/dl (33.0-37.0); MEAN PLATELET VOLUME 9.9 fl (7.4-10.4); PLATELET COUNT 287 K/mm3 (130-400); RED BLOOD COUNT 3.06 M/mm3 (4.10-5.30); REDCELL DISTRIBUTION WIDTH-CV 14.4 % (11.5-14.5)
[2019-03-17 06:05] LABS: HEMOGLOBIN 8.7 g/dl (12.5-16.0); MEAN CORPUSCULAR HEMOGLOBIN 28 pg (27.0-31.0)
[2019-03-17 06:14] LABS: CALCIUM 7.9 mg/dL (8.4-10.2); CREATININE, serum 1.48 (0.52-1.25); POTASSIUM 3.8 mmol/L (3.4-5.0)
[2019-03-17 07:28] LABS: ANISOCYTOSIS 2+; BAND 1 % (0-10); LYMPHOCYTE 12 % (20.0-51.0); MYELOCYTE 1 % (0-0); NEUTROPHILS 76 % (42.0-75.2)
[2019-03-17 07:29] LABS: HYPOCHROMIA 2+
[2019-03-17 07:57] VITALS: BP 125/52; PULSE 51; TEMP 97.6
--- NOTE | 2019-03-17 09:00 | NUR ---
PT WEIGHT WAS ELEVATED THIS MORNING REPROTED TO THIS NURSE. THE BED WAS ZEROED OUT WITHOUT SCD PUMP AND WITHOUT SEIZURE PADS. THIS NURSE REMOVED THOSE FROM BED AND REWEIGHED PT, NEW WT INPUT INTO COMPUTER.
[2019-03-17 10:14] LABS: ARTERIAL BLD GAS O2 SATURATION 93.8 % (92-100); ARTERIAL BLD GAS TCO2 CT 31.2; ARTERIAL BLOOD GAS BASE EXCESS 3.6 (-2-2); ARTERIAL BLOOD GAS HCO3 29.6 meq/L (22-26); ARTERIAL BLOOD GAS PO2 66.2 mmHg (80-100); ARTERIAL BLOOD GAS pH 7.38 (7.35-7.45)
[2019-03-17 11:11] VITALS: BP 118/51; PULSE 57; TEMP 96.8
--- NOTE | 2019-03-17 12:23 | NUR ---
MILLI contacted Goldy, at [facility], on status of referral. Goldy reports that the patient needs a PCP and that she used to follow with Dr. Kendrick Padilla. Goldy also states that the patient would have a co-pay of $160.00 a day. MILLI contacted Magda at [facility]. Magda reports that the patient is still established with Dr. Padilla. MILLI informed Goldy of this. Brook, Nurse Practitioner, informed MILLI that the patient should tentatively be ready to discharge on Wednesday, 03/20. MILLI then met with the patient to review discharge plan and to inform of the co-pay. The patient reports that she has been able to look more at the Medicare.gov list and that she now prefers [facility] as her first preference and [facility] as her second. The patient also reports that she would not be able to afford the $160.00 a day. She states that she has applied for Medicaid. MILLI consulted Financial Counselor, Adam. MILLI then contacted and faxed a referral to Desi at [facility]. MILLI contacted and faxed updates to Goldy at [facility]. MILLI attempted to contact the patient's daughter, Breanna, to update. MILLI left her a voicemail. [facility] and to confirm if patient is Medicaid pending or not.
--- NOTE | 2019-03-17 16:00 | NUR ---
PT HAS WORKED WITH PHYSICAL THEARAPY TODAY. MRI DONE AND RESULTS IN COMPUTER. DOPPLER PERFORMED ON LT ARM WAS NEGITIVE. REVIEWED THIS WITH PT. INFORMED HER THAT WE WOULD BRING IN ANOTHER PILLOW AND ELEVATE HER ARM TODAY.
--- NOTE | 2019-03-17 16:13 | NUR ---
[facility]é [facility] R[facility] cannot accept to skilled care. Nataly will accept upon discharge.
[2019-03-17 16:25] VITALS: BP 153/65; PULSE 63; TEMP 97.7
--- NOTE | 2019-03-17 17:18 | NUR ---
Resuming care of Pt from CYNDEE Parsons.
--- NOTE | 2019-03-17 18:57 | NUR ---
Pt sitting in bed eating dinner. BS 245, sliding scale insulin administered per scale/MAR. Report given to CYNDEE Joseph.
[2019-03-17 19:32] VITALS: BP 110/49; PULSE 63; TEMP 98.4
[2019-03-17 23:32] VITALS: BP 145/61; PULSE 61; TEMP 97.7
--- NOTE | 2019-03-18 02:50 | NUR ---
Pt resting in bed. Awakens to verbal stimuli. Denies pain. Booker cath to dependent drainage with clear, yellow urine. Three lumen to right jugular. SCD's on bilat LE. Given Roxicodone 5mg tab at HS. Request med for sleep. Melatonin 3mg given. Rechecked and pt asleep. Repositioned every 2-3 hours.
[2019-03-18 03:23] VITALS: BP 135/56; PULSE 54; TEMP 97.8
--- NOTE | 2019-03-18 06:01 | NUR ---
Pt awake after having blood drawn. States she never slept last night. Reports that she usually takes Ambien 5mg at HS. Repositioned as needed. Refused a couple of times at turning. Call light in reach.
[2019-03-18 06:07] LABS: MEAN CELL VOLUME 95 fl (80.0-100.0); MEAN CORPUSCULAR HGB CONC 31 g/dl (33.0-37.0); MEAN PLATELET VOLUME 9.6 fl (7.4-10.4); PLATELET COUNT 328 K/mm3 (130-400); RED BLOOD COUNT 3.05 M/mm3 (4.10-5.30); REDCELL DISTRIBUTION WIDTH-CV 14.3 % (11.5-14.5)
[2019-03-18 06:12] LABS: HEMOGLOBIN 8.9 g/dl (12.5-16.0); MEAN CORPUSCULAR HEMOGLOBIN 29 pg (27.0-31.0)
[2019-03-18 06:18] LABS: CALCIUM 7.9 mg/dL (8.4-10.2); CREATININE, serum 1.34 (0.52-1.25); POTASSIUM 4.4 mmol/L (3.4-5.0)
[2019-03-18 08:48] VITALS: BP 129/53; PULSE 61; TEMP 97.4
[2019-03-18 09:29] LABS: BAND 3 % (0-10); EOSINOPHIL 2 % (0-4); HYPOCHROMIA 2+; LYMPHOCYTE 4 % (20.0-51.0); NEUTROPHILS 86 % (42.0-75.2); PLATELET ESTIMATE NORMAL (NORMAL)
--- NOTE | 2019-03-18 10:46 | NUR ---
Pt assessment completed and charted, morning medications administered per JUL. Pt awakens to verbal stimuli and touch. Pt alert, spartially oriented. Denies pain if she "lays still". Triple lumen, RIJ in place w/ tegaderm covering, all ports flush w/ no complication. Booker catheter in place draining clear yellow urine. Pt denies SOB, currently on 2L NC. Denies chest pain, dizziness, N/V/D. Assisted by DIRECTOR FIELD SERVICES w/ breakfast. Pt on Contact precautions. No other concerns voiced at this time.
[2019-03-18 14:23] VITALS: BP 117/54; PULSE 61; TEMP 97.9
--- NOTE | 2019-03-18 15:22 | NUR ---
Pt assisted back to bed from recliner. BS 275, administered SSI per MAR. Bedding changed, denies further needs at this time.
[2019-03-18 16:39] VITALS: BP 107/55; PULSE 60; TEMP 98.2
[2019-03-18 19:51] VITALS: BP 128/51; PULSE 58; TEMP 97.8
--- NOTE | 2019-03-18 21:25 | NUR ---
Patient assessed at this time. Alert and oriented with some confusion, but easily redirected. High fall risk precautions in place. Reports level 7 pain to back. Given PRN Roxicodone as requested. Triple lumen central line to right IJ. Site is without redness, warmth, swelling, and pain. Denies having SOB and dyspnea. On oxygen at 2.5 L/min via NC per baseline. Respirations even and unlabored. LS CTA in upper lobes, diminished in lower lobes. HRR. Telemetry in place-normal sinus. Capillary refill less than 3 seconds. Non-tenting skin turgor. BSAx4. Abdomen soft and non-tender. Indwelling padron catheter is patent and draining clear yellow urine via dependent drainage. 1+ edema BUE and BLE. Redness to coccyx. Continues to be repositioned every two hours. Bruising to right temporal area, and bilateral hips. Voices no questions, needs, or concerns at this time. Resting in bed watching TV. Call light is within reach.
[2019-03-18 23:06] VITALS: BP 131/52; PULSE 61; TEMP 97.8
--- NOTE | 2019-03-18 23:10 | NUR ---
Patient given PRN Melatonin for insomnia at this time. Voices no other questions, needs, or concerns. Call light is within reach.
--- NOTE | 2019-03-19 01:00 | NUR ---
Patient continues to not be able to sleep. Called [facility] requesting Ambien per home medication. New order received to give another 3 mg Melatonin. Given at this time. Voices no other questions, eneds, or concerns. Call light is within reach.
[2019-03-19 02:44] VITALS: BP 133/49; PULSE 60; TEMP 97.6
--- NOTE | 2019-03-19 03:45 | NUR ---
Patient complaining of pain to back and right heel. Right heel red/blanchable/boggy. Floating on pillow. Given PRN Roxicodone for pain. Voices no other questions, needs, or concerns at this time. Resting in bed with call light within reach.
--- NOTE | 2019-03-19 05:37 | NUR ---
Patient states she still did not sleep well during the night. Reports pain is much better at this time. Resting in bed with call light within reach.
[2019-03-19 06:09] LABS: MEAN CELL VOLUME 94 fl (80.0-100.0); MEAN CORPUSCULAR HGB CONC 31 g/dl (33.0-37.0); MEAN PLATELET VOLUME 9.7 fl (7.4-10.4); PLATELET COUNT 328 K/mm3 (130-400); RED BLOOD COUNT 3.03 M/mm3 (4.10-5.30); REDCELL DISTRIBUTION WIDTH-CV 14.1 % (11.5-14.5)
[2019-03-19 06:15] LABS: CREATININE, serum 1.27 (0.52-1.25); POTASSIUM 4.4 mmol/L (3.4-5.0)
[2019-03-19 06:20] LABS: HEMATOCRIT 28.6 % (37.0-47.0); HEMOGLOBIN 8.8 g/dl (12.5-16.0); MEAN CORPUSCULAR HEMOGLOBIN 29 pg (27.0-31.0)
[2019-03-19 08:02] VITALS: BP 134/72; PULSE 62; TEMP 97.7
[2019-03-19 08:12] LABS: BAND 2 % (0-10); HYPOCHROMIA 2+; LYMPHOCYTE 4 % (20.0-51.0); METAMYELOCYTE 1 % (0-0); MYELOCYTE 1 % (0-0); NEUTROPHILS 89 % (42.0-75.2); PLATELET ESTIMATE NORMAL (NORMAL)
--- NOTE | 2019-03-19 09:49 | NUR ---
Pt assessment completed and charted, morning medications administered per JUL. Pt alert, partially oriented, needs redirection. Pt denies pain at this time but due to work with therapy, requesting carmen prior. PRN pain medication administered per JUL. Pt denies SOB, on 2L NC, lung sounds CTA. Denies chest pain, dizziness, palpitations. Tele in place, heart RRR, murmur noted. BS X4. BLE and BUE edema 1+, LH swelling improved. Booker in place draining clear yellow urine w/ no issues. Triple lumen, RIJ Central line CDI, all ports flush w/ no complications, good blood return, no redness, swelling, or pain noted. Bilateral/lateral hip/thigh bruising present, right forehead hematoma/bruise present. Pt able to move legs on bed, difficulty lifting, right side weaker than left. No other concerns voiced at this time.
[2019-03-19 10:53] VITALS: BP 123/53; PULSE 60; TEMP 97.9
[2019-03-19 15:56] VITALS: BP 125/48; PULSE 61; TEMP 98.1
--- NOTE | 2019-03-19 16:07 | NUR ---
Pt central line dressing changed, caps changed. Cath care provided. Pt assisted onto bed august, small semi-loose stool, dark brown in color. Pt denies pain, no other concerns voiced.
[2019-03-19 18:49] VITALS: BP 146/51; PULSE 66; TEMP 97.7
[2019-03-19 23:45] VITALS: BP 142/62; PULSE 60; TEMP 97.6
[2019-03-20 04:45] VITALS: BP 153/57; PULSE 59; TEMP 97.8
[2019-03-20 06:00] LABS: MEAN CELL VOLUME 94 fl (80.0-100.0); MEAN CORPUSCULAR HGB CONC 32 g/dl (33.0-37.0); MEAN PLATELET VOLUME 9.5 fl (7.4-10.4); PLATELET COUNT 364 K/mm3 (130-400); REDCELL DISTRIBUTION WIDTH-CV 14.1 % (11.5-14.5)
[2019-03-20 06:24] LABS: CALCIUM 8.2 mg/dL (8.4-10.2); CREATININE, serum 1.34 (0.52-1.25); POTASSIUM 4.2 mmol/L (3.4-5.0)
[2019-03-20 06:26] LABS: HEMATOCRIT 30.1 % (37.0-47.0); HEMOGLOBIN 9.5 g/dl (12.5-16.0); MEAN CORPUSCULAR HEMOGLOBIN 30 pg (27.0-31.0)
--- NOTE | 2019-03-20 06:31 | NUR ---
Pt had Ambien 5mg at HS. States she has not been able to sleep and it is going on 3 days. Around 4:30 pt was confused. Thought her grandson was causing trouble. Wanting to get out of bed. Bed alarm on and repositioned.
[2019-03-20 07:11] VITALS: BP 158/68; PULSE 57; TEMP 97.8
[2019-03-20 07:48] LABS: BAND 2 % (0-10); LYMPHOCYTE 6 % (20.0-51.0); METAMYELOCYTE 1 % (0-0); MYELOCYTE 1 % (0-0); NEUTROPHILS 84 % (42.0-75.2)
[2019-03-20 07:49] LABS: PLATELET ESTIMATE NORMAL (NORMAL)
[2019-03-20] MEDS ORDERED: IPRATROPIUM BROM3 M1 IH (08:04)
[2019-03-20] MEDS ORDERED: CORDARONE200 MG/TAB PO (08:05)
[2019-03-20] MEDS ORDERED: TYLENOL 325MG325 MG PO (08:06)
[2019-03-20] MEDS ORDERED: KEPPRA 500MG500 MG PO (08:06)
[2019-03-20] MEDS ORDERED: AMBIEN 5MG TABLE5 MG PO (08:09)
[2019-03-20] MEDS ORDERED: ROXICODONE 55 MG/TAB PO (08:09)
[2019-03-20] MEDS ORDERED: ASPIRIN E.C. 8181 MG PO (09:38)
[2019-03-20] MEDS ORDERED: LASIX 20MG TABL20 MG PO (09:39)
[2019-03-20] MEDS ORDERED: NOVOLOG FLEX100 U/ML SQ (09:47)
[2019-03-20 11:10] VITALS: BP 158/68; PULSE 57; TEMP 97.8
[2019-03-20 11:32] VITALS: BP 146/58; PULSE 56; TEMP 98.2
--- NOTE | 2019-03-20 13:22 | NUR ---
Director Of Kids attended clinical rounds with the team. Patient to discharge today. MILLI contacted Goldy at [facility] who set up transportation time for 2:30pm. MILLI provided this update to patient's daughter Breanna and patient's RN Thao. MILLI met with patient to complete DPOA-HC form. Patient designated her daughter Breanna and her son Negro. MILLI and ANTWON Rob provided witness signature. MILLI provided original to patient, placed copy in chart, and faxed a copy to [facility]. No additional concerns at this time.
--- NOTE | 2019-03-20 15:00 | NUR ---
PATIENT DISCHARGING VIA WITH [facility]. GAVE INFO PACKET TO TAX ASSOCIATE. TRIED TO CALL REPORT AND NEVER DID GET A NURSE TO TAKE MY CALL, PROJECT DIRECTOR NOTIFIED. RIGHT IJ DC'D, COVERED SITE WITH GAUZE & OCCLUSIVE TAPE. TELE OFF. PATIENT DID NOT HAVE ANY CLOTHES AND COMMERCIAL LITIGATION ATTORNEY DID NOT BRING ANY. PATIENT DISCHARGED IN HOSPITAL GOWN WITH MULTIPLE BLANKETS WRAPPING HER. PATIENT WAS ASSISTED TO COMMODE BEFORE DISCHARGE. NOW DISCHARGED.
== END 2019-03-20 14:30 | DRG 535 ==
LOC: COL.ER 21:02 → SURG 03-08 01:54 → ICU 03-08 09:21 → SURG 03-08 09:22 → ICU 03-09 14:42 → SURG 03-10 13:00 → ICU 03-11 10:23 → MEDICAL 03-16 10:24
PROVIDERS: Anesthesiology Critical Care Medicine; Hospitalist; Internal Medicine; Internal Medicine Pulmonary Disease; Nurse Practitioner; Nurse Practitioner Family; Physician Assistant; Student in an Organized Health Care Education/Training Program; ADMIT Nurse Practitioner Family
PROC: 0BH17EZ Insertion of Endotracheal Airway into Trachea, Via Natural or Artificial Opening (ICD-10-PCS; principal; 2019-03-11)
PROC: 5A1945Z Respiratory Ventilation, 24-96 Consecutive Hours (ICD-10-PCS; 2019-03-11)
PROC: 02HV33Z Insertion of Infusion Device into Superior Vena Cava, Percutaneous Approach (ICD-10-PCS; 2019-03-11)
DX: S32.592A Other specified fracture of left pubis, initial encounter for closed fracture (principal); G93.41 Metabolic encephalopathy; J96.22 Acute and chronic respiratory failure with hypercapnia; J96.21 Acute and chronic respiratory failure with hypoxia; G61.0 Guillain-Barre syndrome; E87.2 Acidosis; A04.72 Enterocolitis due to Clostridium difficile, not specified as recurrent; N17.9 Acute kidney failure, unspecified; I48.91 Unspecified atrial fibrillation; I12.9 Hypertensive chronic kidney disease with stage 1 through stage 4 chronic kidney disease, or unspecified chronic kidney disease; N18.3 Chronic kidney disease, stage 3 (moderate); Z66 Do not resuscitate; E11.22 Type 2 diabetes mellitus with diabetic chronic kidney disease; S00.93XA Contusion of unspecified part of head, initial encounter; S40.011A Contusion of right shoulder, initial encounter; G47.33 Obstructive sleep apnea (adult) (pediatric); E03.9 Hypothyroidism, unspecified; J44.9 Chronic obstructive pulmonary disease, unspecified; I95.9 Hypotension, unspecified; W07.XXXA Fall from chair, initial encounter; Y93.9 Activity, unspecified; Y92.009 Unspecified place in unspecified non-institutional (private) residence as the place of occurrence of the external cause; D63.1 Anemia in chronic kidney disease; R56.9 Unspecified convulsions; M81.0 Age-related osteoporosis without current pathological fracture; I27.20 Pulmonary hypertension, unspecified; D72.829 Elevated white blood cell count, unspecified; E78.5 Hyperlipidemia, unspecified; M85.80 Other specified disorders of bone density and structure, unspecified site; E87.5 Hyperkalemia; R53.81 Other malaise; Z79.01 Long term (current) use of anticoagulants; Z95.2 Presence of prosthetic heart valve; Z99.3 Dependence on wheelchair; Z87.891 Personal history of nicotine dependence; Z88.0 Allergy status to penicillin; Z88.6 Allergy status to analgesic agent
CPT/HCPCS: 99222-AI; 99231-AI; 99232-AI; 99233-AI; 99239; A4216; A9585; C9113; J0610; J0692; J1170; J1650; J1815; J1953; J2060; J2704; J2920; J2930; J3010; J3475; J3480; J7030; J7040; J7120; J7512; P9016

== ENCOUNTER → 2019-05-04 | Outpatient (CLI) | payer MEDICARE, MEDICAID ==
[~2019-05-04] MED LIST changes: +CORDARONE200 MG/TAB PO; +DULCOLAX TAB5 MG PO; +EZFE 200200 MG PO; +KEPPRA 500MG500 MG PO; +MELATONIN3 M1 PO; +MUCINEX DM 30 M1 TE1; +NOVOLOG FLEX100 U/ML SQ; +PLAVIX 75MG TAB75 MG PO; +TYLENOL 325MG325 MG PO; +VITAMIND3 5000 PO; +VTAMINC250TA PO; +Vancocin PO
[2019-05-04 16:14] LABS: COLLECTION METHOD CATHETER
[2019-05-04 16:40] LABS: MUCOUS Present /lpf; PH 6 (5-8); SQUAMOUS EPITHELIAL 0-2 /hpf; URINE APPEARANCE Cloudy; URINE BACTERIA None Seen /hpf; URINE BILIRUBIN Negative (NEGATIVE); URINE BLOOD 1+ (NEGATIVE); URINE COLOR Yellow; URINE GLUCOSE Negative (NEGATIVE); URINE KETONE Negative (NEGATIVE); URINE LEUKOCYTE ESTERASE 3+ (NEGATIVE); URINE NITRATE Negative (NEGATIVE); URINE PROTEIN(semi-quant) 2+ (NEGATIVE); URINE RBC >50 /hpf; URINE UROBILINOGEN Negative (NEGATIVE); URINE WBC >50 /hpf
== END ==
LOC: ZCOL.LAB 15:43
PROVIDERS: Family Medicine
DX: N39.0 Urinary tract infection, site not specified (principal)

== ENCOUNTER → 2019-05-29 | Outpatient (CLI) | payer MEDICARE, MEDICAID | LOC: ZCOL.LAB 23:23 | DX: N89.1 Moderate vaginal dysplasia (principal) ==